=== PATIENT | female | born 1985 | race Caucasian/White ===

== ENCOUNTER → 2017-08-11 | Outpatient (CLI) | payer OTHER ==
[2017-08-11 11:09] LABS: Basophils % (A) 1 %; Eosinophils # (A) 0.2 k/uL (0-0.7); Eosinophils % (A) 2 %; HCT 47.7 % (34.0-46.0); HGB 15.2 gm/dL (11.4-16.0); Lymphocytes # (A) 2.3 k/uL (1.0-4.8); Lymphocytes % (A) 30 %; MCH 27.5 pg (25.0-35.0); MCHC 31.8 g/dL (31.0-37.0); MCV 86.5 fL (80.0-100.0); Mean Platelet Volume 6.3; Monocytes # (A) 0.3 k/uL (0-1.0); Monocytes % (A) 4 %; Neutrophils # (A) 4.6 k/uL (1.3-7.7); Neutrophils % (A) 60 %; Platelet Count 385 k/uL (150-450); RBC 5.52 m/uL (3.80-5.40); RDW 13.1 % (11.5-15.5); WBC 7.6 k/uL (3.8-10.6)
[2017-08-11 11:20] LABS: ALT 24 U/L (9-52); AST 19 U/L (14-36); Albumin 4.2 g/dL (3.5-5.0); Alkaline Phosphatase 69 U/L (38-126); Anion Gap 9 mmol/L; Blood Urea Nitrogen 13 mg/dL (7-17); Calcium 9.6 mg/dL (8.4-10.2); Carbon Dioxide 26 mmol/L (22-30); Chloride 110 mmol/L (98-107); Glucose 120 mg/dL (74-99); Potassium 4.7 mmol/L (3.5-5.1); Sodium 145 mmol/L (137-145); Total Bilirubin 0.3 mg/dL (0.2-1.3); Total Protein 7.3 g/dL (6.3-8.2)
[2017-08-11 19:24] LABS: Hemoglobin A1C 5.9 % (4.0-6.0)
== END | disposition home or self-care (01) ==
LOC: LABWHC1 10:16
PROVIDERS: ATTEND Psychiatry & Neurology Psychiatry
DX: Z51.81 Encounter for therapeutic drug level monitoring (principal); Z79.899 Other long term (current) drug therapy
CPT/HCPCS: 36415; 80053; 83036; 84443; 85025

== ENCOUNTER 2020-04-08 13:53 | Inpatient (IN) | payer MEDICARE, OTHER ==
--- NOTE | 2020-04-08 14:09 | ED ---
Psych HPI - General Source: police Mode of arrival: wheelchair <Gio Sheridan - Last Filed: 04/08/20 19:05> <Zo Rivera - Last Filed: 04/10/20 15:30> - General Chief Complaint: Psychiatric Symptoms Stated Complaint: Mental Health Time Seen by Provider: 04/08/20 14:08 - History of Present Illness Initial Comments: Patient is a 34-year-old female presenting to emergency Department with chief complaint for psychiatric evaluation. Patient has history of psychiatric disorders and currently taking multiple psychiatric medications. Caregiver is also present who states the patient has been rambling on continuously about unrelated subjects. Patient states she is concerned that her "children have been murdered" by killer in [place]. Caregiver states the patient does not have any children and she has been supersized with serial murderers. She denies any suicidal, homicidal thoughts or ideations. (Gio Sheridan) - Related Data Home Medications Medication Instructions Recorded Confirmed Escitalopram [Lexapro] 20 mg PO HS 02/25/16 04/08/20 busPIRone HCL [Buspar] 30 mg PO BID 02/25/16 04/08/20 Medroxyprogesterone Acetate 150 mg INJ Q84D 04/08/20 04/08/20 [Depo-Provera] OLANZapine [ZyPREXA] 5 mg PO HS 04/08/20 04/08/20 Allergies Allergy/AdvReac Type Severity Reaction Status Date / Time Penicillins AdvReac Rash/Hives Verified 04/08/20 14:48 Review of Systems ROS Other: All systems not noted in ROS Statement are negative. <Gio Sheridan - Last Filed: 04/08/20 19:05> ROS Other: All systems not noted in ROS Statement are negative. <Zo Rivera - Last Filed: 04/10/20 15:30> ROS Statement: Those systems with pertinent positive or pertinent negative responses have been documented in the HPI. Past Medical History Additional Past Medical History / Comment(s): AUSTISM History of Any Multi-Drug Resistant Organisms: None Reported Past Surgical History: Ear Surgery Past Psychological History: Anxiety, Depression Smoking Status: Unknown if ever smoked Past Alcohol Use History: Occasional Past Drug Use History: None Reported <Gio Sheridan - Last Filed: 04/08/20 19:05> General Exam Limitations: altered mental status General appearance: alert, in no apparent distress, obese Head exam: Present: atraumatic, normocephalic, normal inspection Eye exam: Present: normal appearance, PERRL, EOMI Pupils: Present: normal accommodation ENT exam: Present: normal exam, normal oropharynx, mucous membranes moist Neck exam: Present: normal inspection, full ROM. Absent: tenderness Respiratory exam: Present: normal lung sounds bilaterally. Absent: respiratory distress, wheezes, rales Cardiovascular Exam: Present: regular rate, normal rhythm, normal heart sounds Extremities exam: Present: normal inspection, full ROM, normal capillary refill. Absent: tenderness Back exam: Present: normal inspection, full ROM. Absent: tenderness, CVA tenderness (R), CVA tenderness (L) Neurological exam: Present: alert, oriented X3, normal gait Psychiatric exam: Present: normal affect Skin exam: Present: warm, dry, intact, normal color <Gio Sheridan - Last Filed: 04/08/20 19:05> Course Vital Signs 04/08/20 04/08/20 14:03 14:43 Temperature 98.4 F 98.2 F Pulse Rate 106 H 113 H Respiratory 18 16 Rate Blood Pressure 171/107 173/109 O2 Sat by Pulse 96 96 Oximetry Medical Decision Making <Gio Sheridan - Last Filed: 04/08/20 19:05> <Zo Rivera - Last Filed: 04/10/20 15:30> - Medical Decision Making Patient is a 34-year-old female presenting to the emergency department for psychiatric evaluation. Physical examination is unremarkable. Patient continues to ramble about unrelated subjects. Caregiver is also present in the room who gave further explaining about the patient.. She denies any homicidal, suicidal thoughts or ideations. EPS evaluated patient and she will be admitted for further medical management. Case discussed with (Gio Sheridan) Evaluated the patient myself. She has pressured speech and confabulations. She thinks she is the mother of the 5 Alves children that were killed in [place] in 2000. I filled out a certification on the patient as she does required inpatient treatment. Patient made aware of plan and [facility]. (Zo Rivera) Disposition Is patient prescribed a controlled substance at d/c from ED?: No Time of Disposition: 19:23 <Gio Sheridan - Last Filed: 04/08/20 19:05> <Zo Rivera - Last Filed: 04/10/20 15:30> Clinical Impression: Acute psychosis Disposition: ADMITTED IP TO THIS HOSP Condition: Fair
[2020-04-08] MEDS ORDERED: LORazepam 1 MG TAB PO PRN (18:14)
[2020-04-08] MEDS ORDERED: ACETAMINOPHEN TAB 325 MG TAB PO PRN (18:14)
[2020-04-08] MEDS ORDERED: MAGNESIUM HYDROXIDE 2,400 MG/10 ML CUP PO PRN (18:14)
[2020-04-08] MEDS: busPIRone HCl 10 MG TAB PO SCH ×2 (19:58→20:17)
[2020-04-08] MEDS: ESCITALOPRAM 20 MG TAB PO SCH (19:59)
[2020-04-08] MEDS ORDERED: OLANZapine 5 MG TAB PO SCH (21:00)
[2020-04-08] MEDS: ZIPRASIDONE 20 MG VIAL IM PRN (22:07)
[2020-04-09] MEDS: LORazepam 2 MG/ML INJ IM PRN ×2 (04:15→22:17)
[2020-04-09] MEDS: busPIRone HCl 10 MG TAB PO SCH ×3 (08:55→20:49)
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
[2020-04-09] MEDS: ESCITALOPRAM 20 MG TAB PO SCH (20:49)
[2020-04-09] MEDS: OLANZapine 7.5 MG TAB PO SCH ×2 (21:41→21:43)
[2020-04-09] MEDS: ZIPRASIDONE 20 MG VIAL IM PRN (22:17)
[2020-04-10] MEDS: busPIRone HCl 10 MG TAB PO SCH ×2 (08:40→21:01)
--- NOTE | 2020-04-10 10:30 | P.PN ---
Progress Note - Text Progress Note Date: 04/10/20 Interval History: Patient was seen wandering the hallways and was directable and agreeable to speak with copy writer in the office. Patient continues to display some disorganized behavior and is a poor historian. She was initially seen at the nursing station yelling expletives at the nurse during med pass She refused to take her Buspar this morning believing that she is being overmedicated despite this dose being actually her home medication. She continues to endorse delusional thinking. She refused her Zyprexa last night and refuses to entertain the idea of a new medication to be trialed. At this time patient denies any suicidal or homicidal ideations, intent or plan. Mental Status Exam: General Appearance: Patient appears to be stated age is alert, directable, and intermittently cooperative. Behavior: Psychomotor activity is elevated. Patient paces back and forth in the room. She was unable to sit still. Speech: Patient's speech is fluent, loud, and has been yelling expletives. Mood/Affect: Mood is improving mildly, affect is congruent and constricted. Suicidality/Homicidality: Patient denies having any suicidal or homicidal ideation intent or plan. Perceptions: Patient denies any visual hallucinations and denies any auditory hallucinations Though content/process: Delusional thought processes as well as disorganization is noted. Memory and concentration: AOX3, grossly intact for the purposes of this session Judgment and insight: Poor Assessment Kos is, unspecified Autism spectrum disorder Intellectual disability Plan: -Patient continues to meet criteria for inpatient psychiatric admission for symptom stabilization and safety. Patient has been signed involuntarily. A second certification was completed and along with petition will be filed for court. -Medications: Patient has been refusing her Zyprexa 7.5 mg by mouth at bedtime for psychosis, BuSpar 30 mg by mouth twice a day for anxiety She has been taking her Lexapro 20 mg by mouth at bedtime for depression -When necessary Ativan and Geodon for agitation/aggression. -SW on board for discharge planning. Encouraged the patient to participate in milieu.
[2020-04-10] MEDS: OLANZapine 7.5 MG TAB PO SCH ×2 (21:01→21:09)
[2020-04-10] MEDS: ESCITALOPRAM 20 MG TAB PO SCH ×2 (21:01→21:09)
--- NOTE | 2020-04-10 22:58 | P.CONS ---
History of Present Illness - Reason for Consult Consult date: 04/10/20 medical eval - Chief Complaint psychosis - History of Present Illness Mindi Velez is a 34 yo F with history autism disorder, intellectual disability who was brought to the ED by police after they receieved reports of pt unable to care for herself. She endorses psychotic delusion of being related to Andrew Alves, being older than her actual age and flight of ideas. She is disorganized in our conversation. She denies any physical complains including chest pain, shortness of breath, nausea, vomiting, abdominal pain. Review of Systems All systems: negative Constitutional: Denies chills, Denies fever Eyes: denies blurred vision, denies pain Ears, nose, mouth and throat: Denies headache, Denies sore throat Cardiovascular: Denies chest pain, Denies shortness of breath Respiratory: Denies cough Gastrointestinal: Denies abdominal pain, Denies diarrhea, Denies nausea, Denies vomiting Genitourinary: Denies dysuria, Denies hematuria Musculoskeletal: Denies myalgias Integumentary: Denies pruritus, Denies rash Neurological: Denies numbness, Denies weakness Psychiatric: Reports confusion, Reports difficulty concentrating, Reports mood swings, Reports paranoia, Denies anxiety, Denies depression Endocrine: Denies fatigue, Denies weight change Past Medical History Additional Past Medical History / Comment(s): AUSTISM History of Any Multi-Drug Resistant Organisms: None Reported Past Surgical History: Ear Surgery Past Psychological History: Anxiety, Depression Smoking Status: Unknown if ever smoked Past Alcohol Use History: Occasional Past Drug Use History: None Reported Medications and Allergies Home Medications Medication Instructions Recorded Confirmed Type Escitalopram [Lexapro] 20 mg PO HS 02/25/16 04/08/20 History busPIRone HCL [Buspar] 30 mg PO BID 02/25/16 04/08/20 History Medroxyprogesterone Acetate 150 mg INJ Q84D 04/08/20 04/08/20 History [Depo-Provera] OLANZapine [ZyPREXA] 5 mg PO HS 04/08/20 04/08/20 History Allergies Allergy/AdvReac Type Severity Reaction Status Date / Time Penicillins AdvReac Rash/Hives Verified 04/08/20 14:48 Physical Exam General: well nourished, well developed, NAD. Vitals reviewed Eyes: PERRL, EOMI, conjunctiva normal HENT: normocephalic, mucus membranes moist Neck: supple, no JVD Lungs: normal respiratory effort, no wheezes or rales CV: Regular rate and rhythm, no murmur. Peripheral pulses 2+ Abdomen: soft, nondistended, no organomegaly Lymph: no cervical or axillary LAD Skin: warm and dry. Neuro: Alert and oriented. No focal deficits. Affect is flat. Delusional Assessment and Plan (1) Acute psychosis Current Visit: Yes Status: Acute Code(s): F23 - BRIEF PSYCHOTIC DISORDER SNOMED Code(s): 79840965 Plan: 1. Acute psychosis. Management per psychiatry. Will continue to follow
[2020-04-11 07:41] LABS: Basophils # (A) 0.1 k/uL (0-0.2); Basophils % (A) 1 %; Eosinophils # (A) 0.2 k/uL (0-0.7); Eosinophils % (A) 2 %; HGB 14.9 gm/dL (11.4-16.0); Lymphocytes # (A) 2.4 k/uL (1.0-4.8); Lymphocytes % (A) 27 %; MCH 28.4 pg (25.0-35.0); MCHC 32.5 g/dL (31.0-37.0); MCV 87.3 fL (80.0-100.0); Mean Platelet Volume 6.6; Monocytes # (A) 0.6 k/uL (0-1.0); Monocytes % (A) 7 %; Neutrophils # (A) 5.4 k/uL (1.3-7.7); Neutrophils % (A) 61 %; Platelet Count 389 k/uL (150-450); RBC 5.26 m/uL (3.80-5.40); WBC 8.9 k/uL (3.8-10.6)
[2020-04-11 08:05] LABS: ALT 30 U/L (4-34); African American GFR (CKD) >90 (>60 ml/min/1.73 sqM); Albumin 4.4 g/dL (3.5-5.0); Anion Gap 8 mmol/L; Blood Urea Nitrogen 15 mg/dL (7-17); Calcium 9.4 mg/dL (8.4-10.2); Carbon Dioxide 26 mmol/L (22-30); Chloride 104 mmol/L (98-107); Cholesterol 151 mg/dL (<200); Glucose 104 mg/dL (74-99); HDL Cholesterol 36 mg/dL (40-60); LDL Cholesterol,Calculated 97 mg/dL (0-99); Non-African American GFR(CKD) >90 (>60 ml/min/1.73 sqM); Sodium 138 mmol/L (137-145); Total Bilirubin 0.9 mg/dL (0.2-1.3); Total Protein 7.7 g/dL (6.3-8.2); Triglycerides 88 mg/dL (<150)
[2020-04-11 08:06] LABS: AST 43 U/L (14-36); Alkaline Phosphatase 63 U/L (38-126); Potassium 4.8 mmol/L (3.5-5.1)
[2020-04-11] MEDS: busPIRone HCl 10 MG TAB PO SCH ×3 (09:07→22:21)
--- NOTE | 2020-04-11 09:13 | P.PN ---
Progress Note - Text Progress Note Date: 04/11/20 Interval History: Patient was seen in her bedroom and was directable and agreeable to speak with sign writer hand in the office. Patient continues to report delusional thought content. He continues to deny any medications stating that she feels like she is going to be overmedicated. She continues to express that she is a mother and is fixated on murders going on in [place]. At this time patient denies any suicidal or homical ideations, intent or plan. She is not endorsing any auditory or visual hallucinations today. She continues to refuse medications even after discussing what was offered was the same as her home medications. Mental Status Exam: General Appearance: Patient appears to be stated age is alert, directable, and intermittently cooperative. Behavior: Patient is calmly seated without any agitated behavior. Speech: Patient's speech is fluent and nonpressured. She continues to occasionally say multiple expletives. Mood/Affect: Mood is irritated, affect is blunted. Suicidality/Homicidality: Patient denies having any suicidal or homicidal ideation intent or plan. Perceptions: Patient denies any visual hallucinations and denies any auditory hallucinations Though content/process: Delusional thought content is evident. Memory and concentration: AOX3, grossly intact for the purposes of this session Judgment and insight: Improving mildly Assessment Psychosis, unspecified - Suspect Schizophrenia Autism spectrum disorder Intellectual disability Plan: -Patient continues to meet criteria for inpatient psychiatric admission for symptom stabilization and safety. Patient has been signed involuntarily. A second certification was completed and along with petition will be filed for court. -Medications: Patient has been refusing her Zyprexa 7.5 mg by mouth at bedtime for psychosis, BuSpar 30 mg by mouth twice a day for anxiety, and her lexapro 20 mg at bedtime. -When necessary Ativan and Geodon for agitation/aggression. -SW on board for discharge planning. Encouraged the patient to participate in milieu.
[2020-04-11 11:36] LABS: Hemoglobin A1C 6.5 % (4.0-6.0)
[2020-04-11] MEDS: OLANZapine 7.5 MG TAB PO SCH (22:21)
[2020-04-11] MEDS: ESCITALOPRAM 20 MG TAB PO SCH (22:21)
[2020-04-12] MEDS: LORazepam 2 MG/ML INJ IM PRN (01:09)
[2020-04-12] MEDS: ZIPRASIDONE 20 MG VIAL IM PRN (01:09)
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
[2020-04-12] MEDS: busPIRone HCl 10 MG TAB PO SCH ×2 (10:07→20:34)
[2020-04-12] MEDS: ESCITALOPRAM 20 MG TAB PO SCH (20:34)
[2020-04-12] MEDS: OLANZapine 7.5 MG TAB PO SCH (20:34)
--- NOTE | 2020-04-13 08:31 | P.PN ---
Progress Note - Text Progress Note Date: 04/13/20 Interval history: Patient was seen in her bedroom with no one else present and was directable and agreeable to speak with administrative underwriter. Patient has taken her Zyprexa last night and is not endorsing any significant side effects. She continues to be somewhat disorganized and impulsive. She is fixated on her medication regimen and states that she will not take Tylenol but would rather prefer ibuprofen. She continues to be somewhat intrusive and impulsive around other peers. At this time patient denies any suicidal or homicidal ideations intent or plan. Denies any Auditory or visual hallucinations. Patient denies any side effects from the medications and has been compliant with meds. Mental status exam: General Appearance: Patient appears to be stated age is alert, directable, and cooperative. Behavior: No agitated behavior. Patient is calm and directable Speech: Patient's speech is fluent and nonpressured. She continues to say multiple expletives. Mood/Affect: Mood is improving mildly, affect is congruent and constricted. Suicidality/Homicidality: Patient denies having any suicidal or homicidal ideation intent or plan. Perceptions: Patient denies any auditory or visual hallucinations. Though content/process: There is no evidence of any delusional thought content and thought process is linear and goal-directed. Memory and concentration: AOX3, grossly intact for the purposes of this session Judgment and insight: improving mildly Assessment/Plan: Continue with current diagnosis. Patient continues to meet criteria for inpatient psychiatric admission for symptom stabilization and safety. We will increase Zyprexa to 10 mg by mouth at bedtime for psychosis. We will change acetaminophen to ibuprofen as per patient preference. Continue other medications in her current regimen. Monitor for medication compliance and for any psychotropic medication side effects. Will continue to monitor ongoing response to treatment. Encouraged participation in milieu.
[2020-04-13] MEDS: busPIRone HCl 10 MG TAB PO SCH ×2 (09:21→21:19)
[2020-04-13] MEDS ORDERED: OLANZapine 10 MG TAB PO SCH (21:00)
[2020-04-13] MEDS: ESCITALOPRAM 20 MG TAB PO SCH (21:19)
[2020-04-14] MEDS: ZIPRASIDONE 20 MG VIAL IM PRN ×2 (01:04→12:34)
[2020-04-14] MEDS: LORazepam 2 MG/ML INJ IM PRN ×2 (01:05→12:33)
[2020-04-14] MEDS ORDERED: hydrOXYzine HCL 50 MG/ML 1 ML VIAL IM PRN (09:05)
--- NOTE | 2020-04-14 10:11 | P.PN ---
Progress Note - Text Progress Note Date: 04/14/20 Interval history: Patient was seen wandering the hallways and was directable and agreeable to speak with writer producer. Patient was found being in a verbal argument with another peer. She was redirectable and talk to this provider in the office. She appears to be less forthcoming with her delusions but when explored she continues to endorse concerns over a "Dee Wurlinger" who is involved in the murders of children. At this time patient denies any suicidal or homicidal idea tions intent or plan. Denies any Auditory or visual hallucinations. Patient denies any side effects from the medications and has been compliant with meds. Mental status exam: General Appearance: Patient appears to be stated age is alert, directable, and cooperative. Behavior: She does appear to be agitated on the unit and is often confrontational with peers. Speech: Patient's speech is fluent and nonpressured. She continues to say multiple expletives. Mood/Affect: Mood is improving mildly, affect is congruent and constricted. Suicidality/Homicidality: Patient denies having any suicidal or homicidal ideation intent or plan. Perceptions: Patient denies any auditory or visual hallucinations. Though content/process: Delusional thought content is evident. Memory and concentration: AOX3, grossly intact for the purposes of this session Judgment and insight: improving mildly Assessment/Plan: Continue with current diagnosis. Patient continues to meet criteria for inpatient psychiatric admission for symptom stabilization and safety. We will increase her Zyprexa to 15 mg at bedtime. We will continue her other current psychotropic medication regimen. Monitor for medication comp liance and for any psychotropic medication side effects. Will continue to monitor ongoing response to treatment. Encouraged participation in milieu.
[2020-04-14] MEDS: busPIRone HCl 10 MG TAB PO SCH ×2 (10:50→21:16)
[2020-04-14] MEDS ORDERED: WATER FOR INJECTION, STERILE 10 ML IV ONE (12:31)
[2020-04-14] MEDS ORDERED: ZIPRASIDONE 20 MG VIAL IM ONE (12:31)
[2020-04-14] MEDS: OLANZapine 5 MG TAB PO SCH (21:17)
[2020-04-14] MEDS: ESCITALOPRAM 20 MG TAB PO SCH (21:17)
[2020-04-15] MEDS: busPIRone HCl 10 MG TAB PO SCH ×2 (09:34→20:11)
--- NOTE | 2020-04-15 11:10 | P.PN ---
Progress Note - Text Progress Note Date: 04/15/20 Interval History: Patient was seen in bed and was directable and agreeable to speak with property underwriter in in her room privately. Patient continues to endorse psychotic symptoms. She reports auditory hallucinations today. She reports that she hears God speaking to her. She states that God tells her to do things like go to the restroom or walk around. She continues to endorse delusional thoughts but appears to be less forthcoming today. She reports that she is a mother and it is difficult for her hearing about murders. At this time patient denies any suicidal or homicidal ideations, intent or plan. He has been intermittently compliant with her medications. She is reporting no side effects at this time. Mental Status Exam: General Appearance: Patient appears to be stated age is alert, directable, and cooperative. Obese body habitus. Behavior: Patient is lying down calmly in her bed without any agitated behavior. Speech: Patient's speech is fluent and nonpressured. Mood/Affect: Mood is "okay." Affect is labile and expansive. Suicidality/Homicidality: Patient denies having any suicidal or homicidal ideation intent or plan. Perceptions: Patient denies any visual hallucinations and endorses auditory hallucinations. Though content/process: She continues to endorse delusional thought content. Thought process is illogical. Memory and concentration: AOX3, grossly intact for the purposes of this session Judgment and insight: Poor Assessment Schizophrenia Autism spectrum disorder Intellectual disability Plan: -Patient continues to meet criteria for inpatient psychiatric admission for symptom stabilization and safety. Patient has not deferred. She is scheduled for court on 04/24/2020. -Patient has been intermittently compliant with the following medications: Continue Zyprexa 15 mg at bedtime Continue BuSpar 30 mg by mouth twice a day Continue Lexapro 20 mg by mouth at bedtime -When necessary Ativan and Geodon for agitation/aggression. -SW on board for discharge planning. Encouraged the patient to participate in milieu.
[2020-04-15] MEDS: MAG HYDROX/AL HYDROX/SIMETH 30 ML CUP PO PRN ×2 (11:59→20:11)
[2020-04-15] MEDS: IBUPROFEN 600 MG TAB PO PRN (12:46)
[2020-04-15] MEDS: hydrOXYzine pamoate 25 MG CAP PO PRN (12:46)
[2020-04-15] MEDS: ESCITALOPRAM 20 MG TAB PO SCH (20:11)
[2020-04-15] MEDS: OLANZapine 5 MG TAB PO SCH (20:11)
[2020-04-16] MEDS: MAG HYDROX/AL HYDROX/SIMETH 30 ML CUP PO PRN ×3 (01:05→15:48)
[2020-04-16] MEDS: IBUPROFEN 600 MG TAB PO PRN (02:05)
[2020-04-16] MEDS: ZIPRASIDONE 20 MG VIAL IM PRN (02:39)
[2020-04-16] MEDS: LORazepam 2 MG/ML INJ IM PRN (02:39)
--- NOTE | 2020-04-16 09:56 | P.PN ---
Progress Note - Text Progress Note Date: 04/16/20 Interval History: Patient was seen wandering the hallways and was directable and agreeable to speak with newspaper writer in the office. At this time patient denies any suicidal or homical ideations, intent or plan. Patient does continue to endorse psychotic symptoms. She reports she "hears the truth" and that she is a "3D person." She continues to endorse delusional thoughts and a focus on "[place]." She continues to refuse medications. She is often in a verbal altercation with peers and yells many expletives. Mental Status Exam: General Appearance: Patient appears to be stated age is alert, directable, and cooperative. Behavior: Patient is calmly seated without any agitated behavior. Speech: Patient's speech is fluent and nonpressured. Mood/Affect: Mood is irritable, affect is congruent but blunted. Suicidality/Homicidality: Patient denies having any suicidal or homicidal ideation intent or plan. Perceptions: Patient endorses auditory hallucinations. Denies visual. Though content/process: Patient is very delusional and illogical. Memory and concentration: AOX3, grossly intact for the purposes of this session Judgment and insight: Very Poor Assessment Schizophrenia Autism spectrum disorder Intellectual disability Plan: -Patient continues to meet criteria for inpatient psychiatric admission for symptom stabilization and safety. Patient has signed [adult voluntary form and] medication consent and was placed in patient's chart. -Patient has been intermittently compliant with the following medications: Zyprexa 15 mg at bedtime BuSpar 30 mg by mouth twice a day Lexapro 20 mg by mouth at bedtime - Upon court order, will likely transition patient to [facility] to ensure medication compliance and preferable side effect profile vs zyprexa. -When necessary Ativan and Geodon for agitation/aggression. -SW on board for discharge planning. Encouraged the patient to participate in milieu.
--- NOTE | 2020-04-16 10:01 | P.PN ---
Progress Note - Text Progress Note Date: 04/16/20 Interval History: Patient was seen resting in bed and was undirectable and refused to speak with medical technical writer in the office. Patient expresses that she is discharged and refused to cooperate with this provider. She states that Elton Asher came in and told her she is discharged. She said that she does not need court because the supreme court has told her she is free. She continues to be very delusional and refusing medications. Mental Status Exam: General Appearance: Patient appears to be stated age is alert, undirectable, and uncooperative. Behavior: Patient is calmly lying in bed without any agitated behavior. Speech: Patient's speech is fluent and nonpressured. Monotone. Mood/Affect: Mood is upset, affect is congruent and flat. Suicidality/Homicidality: Patient denies having any suicidal or homicidal ideation intent or plan. Perceptions: Endorses both auditory and visual hallucinations Though content/process: Very delusional and illogical. Memory and concentration: AOX3, grossly intact for the purposes of this session Judgment and insight: Very poor Assessment Schizoaffective Disorder, bipolar type Tobacco Use Disorder Plan: -Patient continues to meet criteria for inpatient psychiatric admission for symptom stabilization and safety. Patient is currently awaiting court scheduled for 04/24/2020. -She continues to refuse the following medications: [place] 300 mg by mouth 3 times a day for mood stabilization Risperdal 0.5 mg by mouth twice a day for mood stabilization/psychosis -When necessary Ativan and Geodon for agitation/aggression. -NRT - nicotine patch -SW on board for discharge planning. Encouraged the patient to participate in milieu.
[2020-04-16] MEDS: busPIRone HCl 10 MG TAB PO SCH ×2 (11:31→21:14)
[2020-04-16] MEDS: OLANZapine 5 MG TAB PO SCH (21:14)
[2020-04-16] MEDS: ESCITALOPRAM 20 MG TAB PO SCH (21:15)
[2020-04-17] MEDS: busPIRone HCl 10 MG TAB PO SCH ×2 (09:23→21:19)
--- NOTE | 2020-04-17 09:29 | P.PN ---
Progress Note - Text Progress Note Date: 04/17/20 Interval History: Patient was seen wandering the hallways and was directable and agreeable to speak with singer songwriter in the office. Patient continues to refuse medications believing that she has too much ativan in her system to take any medications despite constant education from this provider. She continues to be delusional and disorganized. At this time patient denies any suicidal or homicidal ideations, intent or plan. She continues to believe that she is a mother and has children who have been murdered. She endorses auditory b ut not visual hallucinations. She is intermittently compliant with medications but has been refusing her antipsychotic at bedtime. Mental Status Exam: General Appearance: Patient appears to be stated age is alert, directable, and cooperative. Behavior: Patient is calmly seated without any agitated behavior. Speech: Patient's speech is fluent and nonpressured. Mood/Affect: Mood is irritable, affect is congruent but blunted. Suicidality/Homicidality: Patient denies having any suicidal or homicidal ideation intent or plan. Perceptions: Patient endorses auditory hallucinations. Denies visual. Though content/process: Patient is very delusional and illogical. Memory and concentration: AOX3, grossly intact for the purposes of this session Judgment and insight: Very Poor Assessment Schizophrenia Autism spectrum disorder Intellectual disability Plan: -Patient continues to meet criteria for inpatient psychiatric admission for symptom stabilization and safety. Patient has signed [adult voluntary form and] medication consent and was placed in patient's chart. -Patient has been intermittently compliant with the following medications: Will change zyprexa to Abilify 10 mg daily. Plan is to transition patient to Abilify maintena. BuSpar 30 mg by mouth twice a day Lexapro 20 mg by mouth at bedtime - Upon court order, will likely transition patient to abilify maintena to ensure medication compliance and preferable side effect profile vs zyprexa. -When necessary Ativan and Geodon for agitation/aggression. -SW on board for discharge planning. Encouraged the patient to participate in milieu.
[2020-04-17] MEDS: ARIPiprazole 10 MG TAB PO SCH (10:35)
[2020-04-17] MEDS: MAG HYDROX/AL HYDROX/SIMETH 30 ML CUP PO PRN (13:03)
[2020-04-17] MEDS: hydrOXYzine pamoate 25 MG CAP PO PRN (15:40)
[2020-04-17] MEDS: ESCITALOPRAM 20 MG TAB PO SCH (21:19)
[2020-04-18] MEDS: busPIRone HCl 10 MG TAB PO SCH ×2 (09:13→20:59)
[2020-04-18] MEDS: ARIPiprazole 10 MG TAB PO SCH (09:13)
[2020-04-18] MEDS: MAG HYDROX/AL HYDROX/SIMETH 30 ML CUP PO PRN (10:11)
--- NOTE | 2020-04-18 11:00 | P.PN ---
Progress Note - Text Progress Note Date: 04/18/20 Interval History: Patient was seen wandering the hallways and was directable and agreeable to speak with tech writer in the office. Patient continues to refuse any medications. She continues to be quite delusional thinking that she is older than she really is and that she is involved in multiple murders. At this time patient denies any suicidal or homical ideations, intent or plan. She reports that she will vehemently refuse any Abilify as that medication made her feel like a zombie. Mental Status Exam: General Appearance: Patient appears to be stated age is alert, directable, and uncooperative. Behavior: Psychomotor activity is elevated Speech: Patient's speech is fluent and nonpressured. Mood/Affect: Mood is irritable, affect is intense but constricted. Suicidality/Homicidality: Patient denies having any suicidal or homicidal ideation intent or plan. Perceptions: Patient denies any visual hallucinations. She does endorse auditory hallucinations. Though content/process: Very delusional and illogical. Memory and concentration: AOX3, grossly intact for the purposes of this session Judgment and insight: Very poor Assessment Schizophrenia Autism spectrum disorder Intellectual disability Plan: -Patient continues to meet criteria for inpatient psychiatric admission for symptom stabilization and safety. Patient is waiting for court order. -Medications: Patient is refusing Abilify. BuSpar 30 mg by mouth twice a day Lexapro 20 mg by mouth at bedtime -When necessary Ativan and Geodon for agitation/aggression. -SW on board for discharge planning. Encouraged the patient to participate in milieu.
[2020-04-18] MEDS: ESCITALOPRAM 20 MG TAB PO SCH (20:59)
[2020-04-19] MEDS: MAG HYDROX/AL HYDROX/SIMETH 30 ML CUP PO PRN (05:33)
[2020-04-19] MEDS: busPIRone HCl 10 MG TAB PO SCH ×2 (08:40→20:34)
[2020-04-19] MEDS: ARIPiprazole 10 MG TAB PO SCH (08:40)
--- NOTE | 2020-04-19 09:45 | P.PN ---
Progress Note - Text Progress Note Date: 04/19/20 Interval History: Patient was seen in group and was directable and agreeable to speak with promotion writer in the office. Patient is not endorsing any auditory or visual hallucinations today. She continues to be quite delusional stating that she is a mother in her 50s and has multiple children.. At this time patient denies any suicidal or homical ideations, intent or plan. In regards to medications, the patient continues to refuse any of them. She continues to be confrontational around others at times. Mental Status Exam: General Appearance: Patient appears to be stated age is alert, directable, and intermittently cooperative. Behavior: Patient is calmly seated without any agitated behavior. Speech: Patient's speech is fluent and nonpressured. Mood/Affect: Mood is improving mildly, affect is congruent and blunted. Suicidality/Homicidality: Patient denies having any suicidal or homicidal ideation intent or plan. Perceptions: Patient denies any visual hallucinations and denies any auditory hallucinations Though content/process: Delusional thought content is evident. Patient is illogical. Memory and concentration: AOX3, grossly intact for the purposes of this session Judgment and insight: Very poor Assessment Schizophrenia Autism spectrum disorder Intellectual disability Plan: -Patient continues to meet criteria for inpatient psychiatric admission for symptom stabilization and safety. Patient is waiting for court order. -Medications: Patient is refusing Abilify and other medications: BuSpar 30 mg by mouth twice a day Lexapro 20 mg by mouth at bedtime -When necessary Ativan and Geodon for agitation/aggression. -SW on board for discharge planning. Encouraged the patient to participate in milieu.
[2020-04-19] MEDS: ESCITALOPRAM 20 MG TAB PO SCH (20:34)
[2020-04-19] MEDS: hydrOXYzine pamoate 25 MG CAP PO PRN (23:48)
[2020-04-20] MEDS: ARIPiprazole 10 MG TAB PO SCH (09:13)
[2020-04-20] MEDS: busPIRone HCl 10 MG TAB PO SCH ×2 (09:13→21:03)
[2020-04-20] MEDS: MAG HYDROX/AL HYDROX/SIMETH 30 ML CUP PO PRN (17:09)
--- NOTE | 2020-04-20 19:20 | PN ---
PROGRESS NOTE DATE OF SERVICE: 04/20/2020 CHIEF COMPLAINT: The patient was psychotic and delusional. She was making bizarre and disordered statements. She had auditory hallucinations. She has a diagnosis of schizophrenia. INTERVAL HISTORY: Patient continues to do about the same. She continues with her usual ups and downs. She is refusing most medications. She comes out in the day area. She wanders about. She will make various comments. At times she can have pressured speech. Most of which she says is disorganized and delusional. She makes a range of odd and disconnected statements. She attended groups and tends to be quite intense in how she presents herself. She needs a fair amount of support from staff to manage the groups. She slept fairly well last night. Today she has been up. She continues this the same. She wanders the unit. She will make various random comments to others around her. She will make efforts to engage with staff. She continues with odd and disorganized thoughts. She continues to refuse medications. She tends to show a buoyant mood and she is often smiling when she is making comments. MENTAL STATUS EXAM: Patient was quite restless. She talked throughout most of the interview. She continued with the pressured speech, flight of ideas, disorganized thoughts and making bizarre statements. Her affect was intense. She smiled. Her mood was elevated. She did not appear to be significantly distressed. She continues to be quite delusional. She voiced no thoughts of harm. She was oriented to her immediate environment. ASSESSMENT: I will continue the current diagnosis and treatment plan. We will continue to make efforts to engage the patient in individual and group therapeutic activities. Psychotropic medications will continue the same, though for the most part the patient refuses all psychotropics. We continue to wait on a court order. I strongly encouraged the patient to make an effort towards taking medications. We will focus on stabilization and discharge planning. MMODL / IJN: [id number] /
[2020-04-20] MEDS: ESCITALOPRAM 20 MG TAB PO SCH (21:03)
[2020-04-20] MEDS: hydrOXYzine pamoate 25 MG CAP PO PRN (21:04)
[2020-04-21] MEDS: IBUPROFEN 600 MG TAB PO PRN (02:29)
[2020-04-21] MEDS: busPIRone HCl 10 MG TAB PO SCH ×2 (09:19→22:13)
[2020-04-21] MEDS: ARIPiprazole 10 MG TAB PO SCH (09:19)
--- NOTE | 2020-04-21 13:45 | PN ---
PROGRESS NOTE DATE OF SERVICE: 04/21/2020 CHIEF COMPLAINT: The patient was psychotic and delusional. She was making bizarre disordered statements. She had auditory hallucinations. She has a diagnosis of schizophrenia. INTERVAL HISTORY: Patient has been doing fair. She had a quiet day yesterday. Mostly she wanders the unit. She will at times engage in conversations with others. She will tend to make unusual statements such as that she is a 57-year-old woman. She will go on with quite a bit of detail about this. She attends groups. She is noted to be "inappropriate, intrusive, delusional and disorganized." She slept well last night. Today she has been up. She is doing the same. She attended group this morning. She has been cooperative with staff and, in general, appropriate in her interactions. Staff note that today she seems a little more reality based and less bizarre in her thinking. Whether or not that represents any significant change remains to be seen. She continues to decline taking medications. She seems to understand the situation of her legal status. MENTAL STATUS: Patient was quite restless. She made various random comments, for the most part that were disconnected from the subject at hand. Her affect was in a reasonable range. She smiled. She had an elevated mood. She did not appear to be distressed. She continues to show signs of delusional thinking. There was no indication of thoughts of harm. She was aware of circumstances and surroundings. ASSESSMENT: I will continue the current diagnosis and treatment plan. We will continue to make efforts to engage the patient in individual and group therapeutic activities. The patient continues to decline taking medications and will be set up for a hearing to address her court-ordered treatment issues. We will focus on stabilization and discharge planning. MMODL / IJN: [id number] /
[2020-04-21] MEDS: ESCITALOPRAM 20 MG TAB PO SCH (22:13)
[2020-04-21] MEDS: hydrOXYzine pamoate 25 MG CAP PO PRN (22:31)
[2020-04-22] MEDS: busPIRone HCl 10 MG TAB PO SCH ×2 (09:02→21:54)
[2020-04-22] MEDS: ARIPiprazole 10 MG TAB PO SCH (09:02)
[2020-04-22] MEDS: MAG HYDROX/AL HYDROX/SIMETH 30 ML CUP PO PRN (09:03)
--- NOTE | 2020-04-22 10:01 | P.PN ---
Progress Note - Text Progress Note Date: 04/22/20 Interval History: Patient was seen wandering the hallways and was directable and agreeable to speak with law writer in the office. Patient continues to be very delusional. She reports that she has "officers on standby"to help if there is any issue on the unit. She reports multiple different names that she is paranoid towards but it is not endorsing any suicidal or homicidal ideation, intention, and/or plan. She is currently not reporting any auditory or visual hallucinations. She continues to refuse medications. Mental Status Exam: General Appearance: Patient appears to be stated age is alert, directable, and intermittently cooperative. Behavior: Patient is calmly seated without any agitated behavior. She has been noted to be intrusive with other staff and peers. Often engaging in physical touch. Speech: Patient's speech is fluent and nonpressured. Patient occasionally states expletives. Mood/Affect: Mood is improving mildly, affect is congruent and blunted. Suicidality/Homicidality: Patient denies having any suicidal or homicidal ideation intent or plan. Perceptions: Patient denies any visual hallucinations and denies any auditory hallucinations Though content/process: Delusional thought content is evident. Patient is illogical. Memory and concentration: AOX3, grossly intact for the purposes of this session Judgment and insight: Very poor Assessment Schizophrenia Autism spectrum disorder Intellectual disability Plan: -Patient continues to meet criteria for inpatient psychiatric admission for symptom stabilization and safety. Patient has signed adult voluntary form and medication consent and was placed in patient's chart. -Medications: Patient is intermittently adherent with her following medications: BuSpar 30 mg by mouth twice a day Lexapro 20 mg by mouth at bedtime He continues to refuse prescribed Abilify. -When necessary Ativan and Geodon for agitation/aggression. -SW on board for discharge planning. Encouraged the patient to participate in milieu.
[2020-04-22] MEDS: ESCITALOPRAM 20 MG TAB PO SCH (21:54)
[2020-04-22] MEDS: IBUPROFEN 600 MG TAB PO PRN (23:12)
[2020-04-23] MEDS: busPIRone HCl 10 MG TAB PO SCH ×2 (09:12→21:09)
[2020-04-23] MEDS: ARIPiprazole 10 MG TAB PO SCH (09:12)
[2020-04-23] MEDS: MAG HYDROX/AL HYDROX/SIMETH 30 ML CUP PO PRN (09:51)
--- NOTE | 2020-04-23 10:06 | P.PN ---
Progress Note - Text Progress Note Date: 04/23/20 Interval History: Patient was seen lying down on the floor in the hallway on her belly and was directable and agreeable to speak with health underwriter in the office. Patient continues to endorse delusional thoughts. Patient reports that she is 57 years old and refuses to listen to reason that she appears much younger. She expresses significant paranoia towards the court's and others. She states that "they are all trying to bullsh you." She reports that the staff here and this provider should not trust the municipal court judge. She continues to refuse medications. In particular, she is refusing any antipsychotic medications. She is not endorsing any suicidal or homicidal ideation, intention, and/or plan. She is not reporting any auditory or visual hallucinations at this time. Mental Status Exam: General Appearance: Patient appears to be stated age is alert, directable, and intermittently cooperative. Behavior: Patient is calmly seated without any agitated behavior. She has been noted to be intrusive with other staff and peers. Often engaging in physical touch. Speech: Patient's speech appears to be pressured and circumstantial today. Mood/Affect: Mood is irritable, affect is congruent and expansive today. Suicidality/Homicidality: Patient denies having any suicidal or homicidal ideation intent or plan. Perceptions: Patient denies any visual hallucinations and denies any auditory hallucinations Though content/process: Delusional thought content is evident. Patient is illogical. Memory and concentration: AOX3, grossly intact for the purposes of this session Judgment and insight: Very poor Assessment Schizophrenia Autism spectrum disorder Intellectual disability Plan: -Patient continues to meet criteria for inpatient psychiatric admission for symptom stabilization and safety. Patient has signed adult voluntary form and medication consent and was placed in patient's chart. -Medications: BuSpar 30 mg by mouth twice a day Lexapro 20 mg by mouth at bedtime She continues to refuse prescribed Abilify. -When necessary Ativan and Geodon for agitation/aggression. -SW on board for discharge planning. Encouraged the patient to participate in milieu.
[2020-04-23] MEDS: hydrOXYzine pamoate 25 MG CAP PO PRN (14:51)
[2020-04-23] MEDS: ZIPRASIDONE 20 MG VIAL IM PRN (18:40)
[2020-04-23] MEDS: LORazepam 2 MG/ML INJ IM PRN (18:43)
[2020-04-23] MEDS: ESCITALOPRAM 20 MG TAB PO SCH (21:09)
[2020-04-24] MEDS: MAG HYDROX/AL HYDROX/SIMETH 30 ML CUP PO PRN ×2 (04:32→14:47)
[2020-04-24] MEDS: ARIPiprazole 10 MG TAB PO SCH (09:33)
[2020-04-24] MEDS: busPIRone HCl 10 MG TAB PO SCH ×2 (09:33→20:23)
--- NOTE | 2020-04-24 10:57 | P.PN ---
Progress Note - Text Progress Note Date: 04/24/20 Interval History: Patient was seen wandering the hallways and was directable and agreeable to speak with quality analyst/technical writer in the office. Patient continues to report multiple delusions. She continues to state that she was born in the 1960s. She expresses a low mood today as she is reminiscing on the loss of multiple family members some of which are present during the [place] assassination. At this time patient denies any suicidal or homicidal ideations, intent or plan. She srinath nues to refuse any medications. She states that she will not take any Abilify. She would prefer to take just Zyprexa. Despite psychoeducation given to the patient, the patient refuses to take any medications. She is due to present herself to court today. Mental Status Exam: General Appearance: Patient appears to be stated age is alert, directable, and intermittently cooperative. Behavior: Patient is calmly seated without any agitated behavior. She has been noted to be intrusive with other staff and peers. Often engaging in physical touch. Speech: Patient's speech appears to be pressured and circumstantial today. Patient continues to say multiple expletives. Mood/Affect: Mood is irritable, affect is congruent and expansive today. Suicidality/Homicidality: Patient denies having any suicidal or homicidal ideation intent or plan. Perceptions: Patient denies any visual hallucinations and denies any auditory hallucinations Though content/process: Delusional thought content is evident. Patient is illogical. Memory and concentration: AOX3, grossly intact for the purposes of this session Judgment and insight: Very poor Assessment Schizophrenia Autism spectrum disorder Intellectual disability Plan: -Patient continues to meet criteria for inpatient psychiatric admission for symptom stabilization and safety. Patient is now court ordered for medications on 04/24/2020. -Medications: BuSpar 30 mg by mouth twice a day Lexapro 20 mg by mouth at bedtime Abilify 10 mg by mouth daily. If patient refuses Abilify, she will receive IM Zyprexa 5 mg. -When necessary Ativan and Geodon for agitation/aggression. -SW on board for discharge planning. Encouraged the patient to participate in milieu.
[2020-04-24] MEDS ORDERED: OLANZapine 10 MG VIAL IM PRN (12:14)
[2020-04-24] MEDS: ESCITALOPRAM 20 MG TAB PO SCH (20:23)
[2020-04-25] MEDS: MAG HYDROX/AL HYDROX/SIMETH 30 ML CUP PO PRN ×2 (04:55→14:57)
--- NOTE | 2020-04-25 09:32 | P.PN ---
Progress Note - Text Progress Note Date: 04/25/20 Interval History: Patient was seen wandering the hallways and was directable and agreeable to speak with staff writer in the office. Patient requested that a mental health tech be present in the room during the interview. Patient expresses that this physician does not have a PhD and as such is not qualified to understand the use of psychotropic medications. She continues to be very delusional and at times grandiose. She is vehemently denying any medication changes to her regimen, even though when she was started on her home medications, the patient continued to refuse any medications. At this time patient denies any suicidal or homicidal ideations, intent or plan. She continues to be very delusional. Mental Status Exam: General Appearance: Patient appears to be stated age is alert, directable, and intermittently cooperative. Behavior: Psychomotor activity is elevated. Patient is agitated. Speech: Patient's speech appears to be pressured, circumstantial, and loud. Mood/Affect: Mood is angry, affect is congruent and expansive today. Suicidality/Homicidality: Patient denies having any suicidal or homicidal ideation intent or plan. Perceptions: Patient denies any visual hallucinations and denies any auditory hallucinations Though content/process: Delusional thought content is evident. Patient is illogical. Memory and concentration: AOX3, grossly intact for the purposes of this session Judgment and insight: Very poor Assessment Schizophrenia Autism spectrum disorder Intellectual disability Plan: -Patient continues to meet criteria for inpatient psychiatric admission for symptom stabilization and safety. Patient is now court ordered for medications on 04/24/2020. -Despite the patient's concerns for Abilify to be overly sedating, she was informed that Zyprexa is known to be more sedating and that Zyprexa has a stronger predisposition for weight gain. Patient is still not agreeable to trying Abilify but we will continue to encourage the use of this medication. -Medications: BuSpar 30 mg by mouth twice a day Lexapro 20 mg by mouth at bedtime Switch Abilify 10 mg by mouth to bedtime as per patient preference. If patient refuses Abilify, she will receive IM Zyprexa 5 mg. -When necessary Ativan and Geodon for agitation/aggression. -SW on board for discharge planning. Encouraged the patient to participate in milieu.
[2020-04-25] MEDS: busPIRone HCl 10 MG TAB PO SCH ×2 (12:20→19:30)
[2020-04-25] MEDS: ARIPiprazole 10 MG TAB PO SCH ×2 (12:20→19:30)
[2020-04-25] MEDS: ESCITALOPRAM 20 MG TAB PO SCH (19:30)
[2020-04-26] MEDS: busPIRone HCl 10 MG TAB PO SCH ×3 (09:36→22:09)
[2020-04-26] MEDS ORDERED: OLANZapine 10 MG VIAL IM PRN (10:17)
--- NOTE | 2020-04-26 10:24 | P.PN ---
Progress Note - Text Progress Note Date: 04/26/20 Interval History: Patient was seen [wandering the hallways] and was directable and agreeable to speak with marketing underwriter in the office. Patient continues to be quite delusional. She initially requested a sales team recruiter be present but then relented and allowed a mental health tech be present in the room during the interview. She continues to endorse significant delusions and states that she'll be uncooperative with the medications. She is reporting that she will not take any injectable medications. She was reminded that she is currently on a court order and that if she refuses any oral medications she will receive injectable medication. This provider tried to compromise with the patient offered her different options of antipsychotic treatment such as Prolixin, Haldol, Risperdal, or Invega instead of Abilify, but the patient states that she will not take any of these. She continues to have bizarre delusions of murder, her age, her children and other illogical ideas. She continues to be verbally aggressive around staff and peers. Mental Status Exam: General Appearance: Patient appears to be stated age is alert, directable, and intermittently cooperative. Behavior: Psychomotor activity is elevated. Patient is agitated. Speech: Patient's speech appears to be pressured, circumstantial, and loud. Mood/Affect: Mood is angry, affect is congruent and expansive today. Suicidality/Homicidality: Patient denies having any suicidal or homicidal ideation intent or plan. Perceptions: Patient denies any visual hallucinations and denies any auditory hallucinations Though content/process: Delusional thought content is evident. Patient is illogical. Memory and concentration: AOX3, grossly intact for the purposes of this session Judgment and insight: Very poor Assessment Schizophrenia Autism spectrum disorder Intellectual disability Plan: -Patient continues to meet criteria for inpatient psychiatric admission for symptom stabilization and safety. Patient is now court ordered for medications on 04/24/2020. -Medications: BuSpar 30 mg by mouth twice a day Lexapro 20 mg by mouth at bedtime Continue Abilify 10 mg by mouth to bedtime. If patient refuses Abilify, she will receive IM Zyprexa 5 mg. We will gradually titrate zyprexa IM doses over the weekend if patient continues to refuse oral abilify. -When necessary Ativan and Geodon for agitation/aggression. -SW on board for discharge planning. Encouraged the patient to participate in milieu.
[2020-04-26] MEDS: ARIPiprazole 10 MG TAB PO SCH (21:15)
[2020-04-26] MEDS: ESCITALOPRAM 20 MG TAB PO SCH (21:15)
[2020-04-27] MEDS: busPIRone HCl 10 MG TAB PO SCH ×2 (08:54→21:55)
--- NOTE | 2020-04-27 09:10 | P.PN ---
Progress Note - Text Progress Note Date: 04/27/20 Interval history: Patient was seen wandering the hallways and was directable and agreeable to s peak with inspector automatic typewriter. Patient continues to appear to be talkative and speaking with many other patients on the unit. She was agreeable to speak to inspector automatic typewriter in the office. She was difficult to redirect during conversation and was tangential/circumstantial. She claims that "the grain elevator superintendent made a mistake and he is going to pay for this". She also continues to perseverate on her medications and claims that she wants to be placed back on Zyprexa. She continued to speak about her "manic symptoms" and states that "those are all gone. Patient is hyperverbal and illogical at times. She states that she has a fair appetite. At this time patient denies any suicidal or homicidal ideations intent or plan. Denies any Auditory or visual hallucinations. Mental status exam: General Appearance: Patient appears to be overweight, short in stature, stated age is alert, directable, and attempts to be cooperative. Behavior: No agitated behavior. Patient is calm and directable twos up at times. Speech: Patient's speech is fluent and nonpressured. Hyperverbal. Mood/Affect: Mood is improving mildly, affect is congruent and constricted. Suicidality/Homicidality: Patient denies having any suicidal or homicidal ideation intent or plan. Perceptions: Patient denies any auditory or visual hallucinations. Though content/process: Patient rambles, is illogical/tangential. Memory and concentration: AOX3, grossly intact for the purposes of this session Judgment and insight: Poor Assessment/Plan: Continue with current diagnosis. Patient continues to meet criteria for inpatient psychiatric admission for symptom stabilization and safety.Patient will be maintained on current psychotropic medication regimen. Monitor for medication compliance and for any psychotropic medication side effects. Will continue to monitor ongoing response to treatment. Encouraged participation in milieu.
[2020-04-27] MEDS: ARIPiprazole 10 MG TAB PO SCH (21:55)
[2020-04-27] MEDS: ESCITALOPRAM 20 MG TAB PO SCH (21:55)
[2020-04-28] MEDS: MAG HYDROX/AL HYDROX/SIMETH 30 ML CUP PO PRN (04:54)
[2020-04-28] MEDS: busPIRone HCl 10 MG TAB PO SCH ×2 (09:30→21:38)
--- NOTE | 2020-04-28 09:32 | P.PN ---
Progress Note - Text Progress Note Date: 04/28/20 Interval history: Patient was seen wandering the hallways and near the nurses desk as she was s peaking other patients and was directable and agreeable to speak with advertising copy writer. Patient continues to appear to be talkative. She also continues to be tangential and circumstantial and illogical at times. She spoke about the ginning operator giving her a court order and also how she is demanding to be off the unit. When advertising copy writer was attempting to explain her medications patient repeatedly yelled at him saying "I don't care I don't care!". She continues to have poor insight and judgment and continues to ramble. She also continues to perseverate on her medications and claims that she wants to be placed back on Zyprexa. She referred to several other patients on the unit having different conditions. She states that she was able to sleep throughout the night. She states that she has a fair appetite. At this time patient denies any suicidal or homicidal ideations intent or plan. Denies any Auditory or visual hallucinations. Mental status exam: General Appearance: Patient appears to be overweight, short in stature, stated age is alert, directable, and attempts to be cooperative. Behavior: No agitated behavior. Patient is calm and directable at times. Irritable. Speech: Patient's speech is fluent and nonpressured. Hyperverbal. Mood/Affect: Mood is improving mildly, affect is congruent and constricted. Suicidality/Homicidality: Patient denies having any suicidal or homicidal ideation intent or plan. Perceptions: Patient denies any auditory or visual hallucinations. Though content/process: Patient rambles, is illogical/tangential. Memory and concentration: AOX3, grossly intact for the purposes of this session Judgment and insight: Poor Assessment/Plan: Continue with current diagnosis. Patient continues to meet criteria for inpatient psychiatric admission for symptom stabilization and safety.Patient will be maintained on current psychotropic medication regimen. Monitor for medication compliance and for any psychotropic medication side effects. Will continue to monitor ongoing response to treatment. Encouraged participation in milieu.
[2020-04-28] MEDS ORDERED: ZIPRASIDONE 20 MG VIAL IM ONE (11:18)
[2020-04-28] MEDS: ZIPRASIDONE 20 MG VIAL IM PRN (11:19)
[2020-04-28] MEDS ORDERED: WATER FOR INJECTION, STERILE 10 ML IV ONE (11:19)
[2020-04-28] MEDS: ARIPiprazole 10 MG TAB PO SCH (21:38)
[2020-04-28] MEDS: ESCITALOPRAM 20 MG TAB PO SCH (21:38)
[2020-04-29] MEDS: MAG HYDROX/AL HYDROX/SIMETH 30 ML CUP PO PRN ×3 (03:53→16:57)
--- NOTE | 2020-04-29 09:22 | P.PN ---
Progress Note - Text Progress Note Date: 04/29/20 Interval History: Patient was seen wandering the hallways and was directable and agreeable to speak with communications writer in the office if accompanied by another staff member. Patient continues to be delusional. She continues to believe that her age is older than his stated. She continues to question the validity of her treatment and displays very poor insight into her need for medications. She has been adherent with her Abilify last night but is unable to verbalize any significant side effects at this time. She is not endorsing any suicidal or homicidal ideation, intention, and/or plan. She denies any overt auditory or visual hallucinations. She continues to report that she has been in contact with her test engineer nuclear equipment who is currently working on a case in [place]. Mental Status Exam: General Appearance: Patient appears to be stated age is alert, difficult to direct and uncooperative. Behavior: Psychomotor activity is elevated. Patient is agitated. Speech: Patient's speech appears to be pressured, circumstantial, and loud. Mood/Affect: Mood is angry, affect is congruent and expansive today. Suicidality/Homicidality: Patient denies having any suicidal or homicidal ideation intent or plan. Perceptions: Patient denies any visual hallucinations and denies any auditory hallucinations Though content/process: Delusional thought content is evident. Patient is illogical. Memory and concentration: AOX3, grossly intact for the purposes of this session Judgment and insight: Very poor Assessment Schizophrenia Autism spectrum disorder Intellectual disability Plan: -Patient continues to meet criteria for inpatient psychiatric admission for symptom stabilization and safety. Patient is now court ordered for medications on 04/24/2020. -Medications: BuSpar 30 mg by mouth twice a day Lexapro 20 mg by mouth at bedtime We will increase Abilify to 15 mg by mouth at bedtime for mood stabilization/psychosis. As patient is under court order, she refuses Abilify she will receive IM Zyprexa 10 mg when necessary. -When necessary Geodon for agitation/aggression. -SW on board for discharge planning. Encouraged the patient to participate in milieu.
[2020-04-29] MEDS: busPIRone HCl 10 MG TAB PO SCH ×2 (09:32→21:22)
--- NOTE | 2020-04-29 09:37 | P.PN ---
Progress Note - Text Progress Note Date: 04/29/20 Interval History: Patient was seen resting in bed and refused to get out of bed to speak with technical writer and editor in the office. She preferred to stay in her room as there was no one else present. Patient continues to endorse significant psychotic symptoms. She reports that she has been talking to and seeing her Shaw. She reports that she also has 7 children but not with Shaw. She expresses that she does not want any medications as she is concerned about weight gain and high blood pressure. She was informed of the treatment team will be monitoring closely her blood pressure. She did not endorse any suicidal ideation, intention, and/or plan. She stated that she started feeling homicidal towards this provider as she wants to be discharged and not taking any medications. Mental Status Exam: General Appearance: Patient appears to be stated age is alert, directable, and uncooperative. Behavior: Psychomotor activity is normal Eye contact is intense. Patient is resting in bed. Speech: Patient's speech is fluent and nonpressured. Mood/Affect: Mood is " angry", affect is blunted. Suicidality/Homicidality: Patient denies having any suicidal ideation. She reports homicidal ideation towards this provider. Perceptions: Auditory and visual hallucinations are endorsed. Though content/process: Delusions are evident. Memory and concentration: AOX3, grossly intact for the purposes of this session Judgment and insight: Very poor Assessment Schizoaffective Disorder, bipolar type Tobacco Use Disorder Plan: -Patient continues to meet criteria for inpatient psychiatric admission for symptom stabilization and safety. Patient has received a court order on 04/24/2020. -Medications: We will increase Invega to 3 mg by mouth every morning and 60 g by mouth daily at bedtime for mood stabilization/psychosis. If the patient refuses Invega, she will receive 10 mg IM of Zyprexa. -When necessary Vistaril and Geodon for agitation/aggression. -NRT - nicotine patch -SW on board for discharge planning. Encouraged the patient to participate in milieu.
[2020-04-29] MEDS: hydrOXYzine pamoate 25 MG CAP PO PRN (17:36)
[2020-04-29] MEDS ORDERED: ARIPiprazole 15 MG TAB PO SCH (21:00)
[2020-04-29] MEDS: ESCITALOPRAM 20 MG TAB PO SCH (21:21)
[2020-04-29] MEDS ORDERED: WATER FOR INJECTION, STERILE 10 ML IV ONE (21:26)
[2020-04-29] MEDS: OLANZapine 10 MG VIAL IM PRN (21:27)
[2020-04-30] MEDS: busPIRone HCl 10 MG TAB PO SCH ×2 (09:23→22:17)
--- NOTE | 2020-04-30 10:30 | P.PN ---
Progress Note - Text Progress Note Date: 04/30/20 Interval History: Patient was seen wandering the hallways and was directable and agreeable to speak with inspector automatic typewriter in the office. Patient expresses strong disdain for medications. She reports that she is very un-trusting of Dr. Clements has she has witnessed him prescribe medications that cause patient to be more psychotic. She is currently continuing to refuse any oral Abilify and has been receiving IM Zyprexa. Again she was presented with the options for other antipsychotic medications, the patient is currently refusing. She is not reporting any suicidal or homicidal ideation or intention. She continues to be very delusional and paranoid. She can easily intrusive with staff and peers. She denies any overt auditory or visual hallucinations. Mental Status Exam: General Appearance: Patient appears to be stated age is alert, difficult to direct and uncooperative. Behavior: Psychomotor activity is elevated. Patient is agitated. Speech: Patient's speech appears to be pressured, circumstantial, and loud. Mood/Affect: Mood is angry, affect is congruent and expansive today. Suicidality/Homicidality: Patient denies having any suicidal or homicidal ideation intent or plan. Perceptions: Patient denies any visual hallucinations and denies any auditory hallucinations Though content/process: Delusional thought content is evident. Patient is illogical. Flight of ideas. Memory and concentration: AOX3, grossly intact for the purposes of this session Judgment and insight: Very poor Assessment Schizophrenia Autism spectrum disorder Intellectual disability Plan: -Patient continues to meet criteria for inpatient psychiatric admission for symptom stabilization and safety. Patient is now court ordered for medications on 04/24/2020. -Medications: BuSpar 30 mg by mouth twice a day Lexapro 20 mg by mouth at bedtime Increase Abilify to 20 mg by mouth at bedtime for mood stabilization/psychosis. As patient is under court order, she refuses Abilify she will receive IM Zyprexa 10 mg when necessary. Will consider changing medication regimen to haldol with plans to transition patient to haldol decanoate. Will consider discontinuing or holding lexapro as it may contribute to patient's overactivation/jessie. -When necessary Geodon for agitation/aggression. -SW on board for discharge planning. Encouraged the patient to participate in milieu.
[2020-04-30] MEDS: MAG HYDROX/AL HYDROX/SIMETH 30 ML CUP PO PRN (11:08)
[2020-04-30] MEDS: ARIPiprazole 10 MG TAB PO SCH (22:17)
[2020-04-30] MEDS: ESCITALOPRAM 20 MG TAB PO SCH (22:17)
[2020-04-30] MEDS: hydrOXYzine pamoate 25 MG CAP PO PRN (22:22)
[2020-04-30] MEDS: OLANZapine 10 MG VIAL IM PRN (22:29)
[2020-05-01] MEDS: IBUPROFEN 600 MG TAB PO PRN ×2 (06:02→23:08)
[2020-05-01] MEDS: MAG HYDROX/AL HYDROX/SIMETH 30 ML CUP PO PRN ×2 (06:02→22:04)
[2020-05-01] MEDS: busPIRone HCl 10 MG TAB PO SCH ×3 (09:53→21:44)
--- NOTE | 2020-05-01 10:17 | P.PN ---
Progress Note - Text Progress Note Date: 05/01/20 Patient was seen wandering the hallways and was directable and agreeable to speak with racebook writer in the office. Patient continues to be quite agitated. She is raising her voice and is swearing at this provider. She continues to endorse bizarre and paranoid delusions. She expresses at [facility] and [facility] have been causing patients to be iconic and manic and that if this provider is working with them, then this provider is making a "huge mistake." She continues to endorse some grandiose statements and has been intrusive with peers and staff. She is not endorsing any suicidal or homicidal ideation or intention. She has not been adherent with her medications and has been requiring IM Zyprexa. She is not reporting any significant side effects at this time. Mental Status Exam: General Appearance: Patient appears to be stated age is alert, difficult to direct and uncooperative. Behavior: Psychomotor activity is elevated. Patient is agitated. Speech: Patient's speech appears to be pressured, circumstantial, and loud. Patient says many expletives. Mood/Affect: Mood is angry, affect is congruent and expansive today. Suicidality/Homicidality: Patient denies having any suicidal or homicidal ideation intent or plan. Perceptions: Patient denies any visual hallucinations and denies any auditory hallucinations Though content/process: Delusional thought content is evident. Patient is illogical. Flight of ideas. Grandiose. Memory and concentration: AOX3, grossly intact for the purposes of this session Judgment and insight: Very poor Assessment Schizophrenia Rule out Schizoaffective Disorder, Bipolar Type Autism spectrum disorder Intellectual disability Plan: -Patient continues to meet criteria for inpatient psychiatric admission for symptom stabilization and safety. Patient is now court ordered for medications on 04/24/2020. -Medications: Continue BuSpar 30 mg by mouth twice a day Discontinue Lexapro 20 mg by mouth at bedtime as the patient may be over activated on her antidepressant Increase Abilify to 10 mg by mouth in the morning and 20 mg by mouth at bedtime for mood stabilization/psychosis. As patient is under court order, she refuses Abilify she will receive IM Zyprexa 10 mg when necessary. Will consider changing medication regimen to haldol with plans to transition patient to haldol decanoate. -When necessary Geodon for agitation/aggression. -SW on board for discharge planning. Encouraged the patient to participate in [facility].
[2020-05-01] MEDS: ARIPiprazole 10 MG TAB PO SCH (21:34)
[2020-05-02] MEDS ORDERED: ARIPiprazole 10 MG TAB PO SCH (09:00)
[2020-05-02] MEDS: busPIRone HCl 10 MG TAB PO SCH ×2 (09:57→21:14)
[2020-05-02] MEDS: OLANZapine 10 MG VIAL IM PRN (10:11)
[2020-05-02] MEDS ORDERED: flUPHENAZine 2.5 MG/ML (MDV) 10 ML VIAL IM PRN (10:14)
--- NOTE | 2020-05-02 10:20 | P.PN ---
Progress Note - Text Progress Note Date: 05/02/20 Interval History: Patient was seen in the [facility] and refused to speak with the technical writer in the office. Patient was agreeable to speak with technical writer with [facility] present. Patient continues to be agitated, intrusive, and verbally aggressive with this provider. She continues to vehemently deny any medication changes. Despite being offered oral formulations of multiple antipsychotic medications, the patient refuses any change to her regimen. This is despite the fact that the patient has also refused her home regimen when she was admitted. She continues to be very delusional and is continually focused on Evonne Alves and the murders in [place]. She expresses blame towards Dr. Clements in [facility] for messing with the medications that lead to Evonne Alves performing the murders. She denies any suicidal or homicidal ideation, intention, and/or plan. Mental Status Exam: General Appearance: Patient appears to be stated age is alert, difficult to direct and uncooperative. Obese body habitus. Behavior: Psychomotor activity is elevated. Patient is agitated. Speech: Patient's speech appears to be pressured, circumstantial, and loud. Patient says many expletives. Mood/Affect: Mood is angry, affect is congruent and expansive today. Suicidality/Homicidality: Patient denies having any suicidal or homicidal ideation intent or plan. Perceptions: Patient denies any visual hallucinations and denies any auditory hallucinations Though content/process: Delusional thought content is evident. Patient is illogical. Flight of ideas. Grandiose. Memory and concentration: AOX3, grossly intact for the purposes of this session Judgment and insight: Very poor Assessment Schizoaffective disorder, bipolar type Autism spectrum disorder Intellectual disability Plan: -Patient continues to meet criteria for inpatient psychiatric admission for symptom stabilization and safety. Patient is now court ordered for medications on 04/24/2020. -Medications: Continue BuSpar 30 mg by mouth twice a day Discontinue Abilify and Zyprexa. We will change her medication regimen to Prolixin 2.5 mg by mouth twice a day. If patient refuses oral prolixin, we will administer 1.25 mg IM. These doses will gradually be titrated to an efficacious dose. Our goals transition the patient to Prolixin decanoate as a patient has been nonadherent with treatment. -When necessary Geodon for agitation/aggression. -SW on board for discharge planning. Encouraged the patient to participate in milieu.
[2020-05-02] MEDS: ARIPiprazole 10 MG TAB PO SCH (11:30)
[2020-05-02] MEDS ORDERED: hydrOXYzine HCL 50 MG/ML 1 ML VIAL IM ONE (11:58)
[2020-05-02] MEDS: ZIPRASIDONE 20 MG VIAL IM PRN (17:02)
[2020-05-02] MEDS: IBUPROFEN 600 MG TAB PO PRN (23:30)
[2020-05-03] MEDS: busPIRone HCl 10 MG TAB PO SCH ×2 (08:40→21:17)
[2020-05-03] MEDS: IBUPROFEN 600 MG TAB PO PRN ×3 (08:43→21:17)
[2020-05-03] MEDS ORDERED: flUPHENAZine 2.5 MG/ML (MDV) 10 ML VIAL IM PRN (10:10)
--- NOTE | 2020-05-03 10:19 | P.PN ---
Progress Note - Text Progress Note Date: 05/03/20 Interval History: Patient was seen in the hallway and refused to speak with the business writer in the office. Patient was agreeable to be interviewed while walking around the halls with no one. The patient continues to be agitated, intrusive, and verbally aggressive with this provider. She continues to state that she does not trust this provider. She has been adherent with her oral Prolixin. She continues to be paranoid and lacks insight. She continues to be intrusive and grandiose. She is not endorsing any suicidal or homicidal ideation, intention, and/or plan. She continues to be delusional. She does not endorse any auditory or visual hallucinations. Mental Status Exam: General Appearance: Patient appears to be stated age is alert, difficult to direct and uncooperative. Obese body habitus. Behavior: Psychomotor activity is elevated. Patient wanders the halls. Eye contact is intense. Speech: Patient's speech appears to be pressured, circumstantial, and loud. Patient says many expletives. Mood/Affect: Mood is angry, affect is congruent and expansive today. Suicidality/Homicidality: Patient denies having any suicidal or homicidal ideation intent or plan. Perceptions: Patient denies any visual hallucinations and denies any auditory hallucinations Though content/process: Delusional thought content is evident. Patient is illogical. Flight of ideas. Grandiose. Memory and concentration: AOX3, grossly intact for the purposes of this session Judgment and insight: Very poor Assessment Schizoaffective disorder, bipolar type Autism spectrum disorder Intellectual disability Plan: -Patient continues to meet criteria for inpatient psychiatric admission for symptom stabilization and safety. Patient is now court ordered for medications on 04/24/2020. -Medications: Continue BuSpar 30 mg by mouth twice a day Discontinue Abilify and Zyprexa. We will increase Prolixin to 3 mg by mouth twice a day for psychosis/mood stabilization. This will gradually be titrated to 4 mg by mouth twice a day. If patient refuses oral prolixin, we will administer 3 mg IM. Our goals transition the patient to Prolixin decanoate as the patient has been nonadherent with treatment. -When necessary Vistaril and Geodon for agitation/aggression. -SW on board for discharge planning. Encouraged the patient to participate in milieu.
[2020-05-03] MEDS: MAG HYDROX/AL HYDROX/SIMETH 30 ML CUP PO PRN (11:14)
[2020-05-04] MEDS: hydrOXYzine pamoate 25 MG CAP PO PRN ×3 (00:06→16:45)
[2020-05-04] MEDS: IBUPROFEN 600 MG TAB PO PRN ×2 (05:02→14:19)
[2020-05-04] MEDS: MAG HYDROX/AL HYDROX/SIMETH 30 ML CUP PO PRN ×2 (05:03→10:40)
[2020-05-04] MEDS: busPIRone HCl 10 MG TAB PO SCH ×2 (08:11→20:37)
[2020-05-05] MEDS: MAG HYDROX/AL HYDROX/SIMETH 30 ML CUP PO PRN ×2 (03:34→12:31)
[2020-05-05] MEDS: busPIRone HCl 10 MG TAB PO SCH ×2 (09:03→20:31)
--- NOTE | 2020-05-05 11:53 | P.PN ---
Subjective Progress Note Date: 05/04/20 Principal diagnosis: Bipolar I manic SUBJECTIVE: "I am actually 56 years old and am the sister of the lady who drowned her children in [email or web address] and you should not give Zyprexa in the morning it will make you ill, I want 5.2 at night, I like you already you are algerian, I know that sounds racist but doctors don't listen to women, etc. etc OBJECTIVE: She is on excellent medications, she was seen in my office and can be found at the staffing desk talking loudly most of the time, and is still very manic, with pressured speech flight of ideas, grandiosity, delusions, irrational demands. Staff report:She only slept 3 hours last night She denies delusions or hallucinations or suicidal ideas or desire to hurt others 05/02/20 17:19 - Nurse Note by Zoe Calle Acct Num: [id number] : 1985 Patient Age: 35 Patient still at the front counter clerk will not be redirected. "fuck you [place]", "im getting out of here". Yelling and screaming at staff. Swearing, hitting the desk. Vistaril IM given VITAL SIGNS: temp98.2,pulse80,resp16,BP159/81 LABS: nothing new ASSESSMENT: Patient is still very psychotic and manic PLAN: no change suggested Objective - Vital Signs Vital signs: Vital Signs Temp 97.6 F 05/04/20 00:23 Pulse 84 05/04/20 00:23 Resp 16 05/04/20 00:23 BP 147/79 05/04/20 00:23 Pulse Ox 98 05/03/20 05:21 Intake & Output 05/03/20 05/04/20 05/04/20 18:59 06:59 18:59 Weight 82.1 kg - Labs CBC & Chem 7: 04/11/20 06:46 04/11/20 06:46
--- NOTE | 2020-05-05 11:57 | P.PN ---
Subjective Progress Note Date: 05/05/20 Principal diagnosis: Bipolar I manic SUBJECTIVE: OBJECTIVE: Vital signs: temp resp heart rate blood pressure Labs: STAFF REPORT: MENTAL STATUS: Appearance: basic ADL'S adequate Gait and station:pacing Speech:somewhat loud and fast and rambling with a touch of paranoia, "my real psychiatrist is dr Elliott, someone else was wearing his name tag I don't want to see that other psychiatrist, I won't take any shots." Eye contact: good Behavior: cooperative but pressured and wants to ask "just one more thing dr Yates" Affect:labile No evidence or acknowlegment of voices or delusions Orientation: good to person place and time MEDICATIONS:[id number] BID plus prn's ASSESSMENT:patient is cooperative and still too pressured PLAN:no change she will have to work out her concerns with dr Gilbert and will probably need a decanoate for compliance reasons. Objective - Vital Signs Vital signs: Vital Signs Temp 97.9 F 05/05/20 03:38 Pulse 107 H 05/05/20 03:38 Resp 18 05/05/20 03:38 BP 137/74 05/05/20 03:38 Pulse Ox 98 05/03/20 05:21 Intake & Output 05/04/20 05/05/20 05/05/20 19:59 06:59 18:59 Weight 80.8 kg - Labs CBC & Chem 7: 04/11/20 06:46 04/11/20 06:46
[2020-05-05] MEDS: IBUPROFEN 600 MG TAB PO PRN (15:44)
[2020-05-06] MEDS: MAG HYDROX/AL HYDROX/SIMETH 30 ML CUP PO PRN (06:23)
[2020-05-06] MEDS: IBUPROFEN 600 MG TAB PO PRN ×2 (07:01→17:09)
[2020-05-06] MEDS: busPIRone HCl 10 MG TAB PO SCH ×2 (08:33→21:18)
[2020-05-06] MEDS ORDERED: flUPHENAZine 2.5 MG/ML (MDV) 10 ML VIAL IM PRN (09:23)
--- NOTE | 2020-05-06 09:23 | P.PN ---
Progress Note - Text Progress Note Date: 05/06/20 Interval History: Patient was seen in the hallway and refused to speak with the administrative underwriter in the office. Patient was agreeable to be interviewed while walking around the halls with no one else around. The patient continues to be agitated, intrusive, and verbally aggressive with this provider. Patient continues to endorse significant paranoia especially towards Dr. Clements. She reports that he is responsible for the medications that caused Evonne Alves to be psychotic and d rown her children. She continues to be very delusional stating that she is in her 50s and is with children. She is adamant about returning to her previous medication regimen. She is not reporting any suicidal or homicidal ideation, intention, and/or plan. She reports no side effects of her current medications and has been adherent with her prolixin. Mental Status Exam: General Appearance: Patient appears to be stated age is alert, difficult to direct and uncooperative. Obese body habitus. Behavior: Psychomotor activity is elevated. Patient wanders the halls. Eye contact is intense. Speech: Patient's speech appears to be pressured, circumstantial, and loud. Mood/Affect: Mood is irritable, affect is congruent, angry and expansive today. Suicidality/Homicidality: Patient denies having any suicidal or homicidal ideation intent or plan. Perceptions: Patient denies any visual hallucinations and denies any auditory hallucinations Though content/process: Delusional thought content is evident. Patient is illogical. Flight of ideas. Memory and concentration: AOX3, grossly intact for the purposes of this session Judgment and insight: Very poor Assessment Schizoaffective disorder, bipolar type Autism spectrum disorder Intellectual disability Plan: -Patient continues to meet criteria for inpatient psychiatric admission for symptom stabilization and safety. Patient is now court ordered for medications on 04/24/2020. -Medications: Continue BuSpar 30 mg by mouth twice a day Increase Prolixin to 5 mg by mouth twice a day. Her plans to transition the patient to Prolixin decanoate due to patient history of nonadherence with prescribed treatment. -When necessary Vistaril and Geodon for agitation/aggression. -SW on board for discharge planning. Encouraged the patient to participate in milieu.
[2020-05-07] MEDS: MAG HYDROX/AL HYDROX/SIMETH 30 ML CUP PO PRN ×3 (05:51→19:38)
[2020-05-07] MEDS: busPIRone HCl 10 MG TAB PO SCH ×2 (08:38→22:16)
[2020-05-07] MEDS ORDERED: flUPHENAZine 2.5 MG/ML (MDV) 10 ML VIAL IM PRN (08:56)
--- NOTE | 2020-05-07 09:02 | P.PN ---
Progress Note - Text Progress Note Date: 05/07/20 Interval History: Patient was seen in the hallway and was agreeable to speak with television writer in the office. Patient reports that this provider is not her psychiatrist as her psychiatrist is now Dr Elliott. Despite trying to redirect the patient she is confusing Dr Elliott with another provider. She expresses a strong desire to be back on her original regimen of zyprexa and lexapro. She was informed this regimen showed no efficacy in treating her psychosis and manic symptoms but she continues to be adamant that those are the medications she requires. She has been adherent with her prolixin and denies any side effects at this time. She reports no suicidal or homicidal ideation or intention. She reports no auditory or visual hallucinations. She continues to be very delusional and paranoid especially regarding Dr Cowan and Evonne Alves. Mental Status Exam: General Appearance: Patient appears to be stated age is alert, difficult to direct and intermittently cooperative. Obese body habitus. Behavior: Psychomotor activity is elevated. Patient wanders the halls. Eye con tact is intense. Speech: Patient's speech appears to be pressured, circumstantial, and loud. Mood/Affect: Mood is irritable, affect is congruent and expansive today. Suicidality/Homicidality: Patient denies having any suicidal or homicidal ideation intent or plan. Perceptions: Patient denies any visual hallucinations and denies any auditory hallucinations Though content/process: Delusional thought content is evident. Patient is illogical. Flight of ideas. Memory and concentration: AOX3, grossly intact for the purposes of this session Judgment and insight: Very poor Assessment Schizoaffective disorder, bipolar type Autism spectrum disorder Intellectual disability Plan: -Patient continues to meet criteria for inpatient psychiatric admission for symptom stabilization and safety. Patient is now court ordered for medications on 04/24/2020. -Medications: Start [place] 300 mg by mouth twice a day for mood stabilization. Encouraged patient for medication adherence. Continue BuSpar 30 mg by mouth twice a day Increase Prolixin to 7.5 mg by mouth twice a day. If patient refuses, she will received Prolixin 5 mg IM. Our plan is to transition the patient to Prolixin decanoate due to patient history of nonadherence with prescribed treatment. -When necessary Ken[place] and Gabedon for agitation/aggression. -SW on board for discharge planning. Encouraged the patient to participate in milieu.
[2020-05-07] MEDS: LITHIUM CARBONATE 300 MG CAP PO SCH ×2 (11:59→22:15)
[2020-05-07] MEDS: hydrOXYzine pamoate 25 MG CAP PO PRN (12:16)
[2020-05-07 12:50] LABS: Basophils # (A) 0.1 k/uL (0-0.2); Basophils % (A) 2 %; Eosinophils # (A) 0.2 k/uL (0-0.7); Eosinophils % (A) 2 %; HCT 51.1 % (34.0-46.0); HGB 16.2 gm/dL (11.4-16.0); Lymphocytes # (A) 2.2 k/uL (1.0-4.8); Lymphocytes % (A) 29 %; MCH 27.9 pg (25.0-35.0); MCHC 31.7 g/dL (31.0-37.0); MCV 87.9 fL (80.0-100.0); Mean Platelet Volume 6.3; Monocytes # (A) 0.4 k/uL (0-1.0); Monocytes % (A) 5 %; Neutrophils # (A) 4.4 k/uL (1.3-7.7); Neutrophils % (A) 59 %; Platelet Count 401 k/uL (150-450); RBC 5.82 m/uL (3.80-5.40); RDW 13.1 % (11.5-15.5); WBC 7.4 k/uL (3.8-10.6)
[2020-05-07] MEDS: LORATADINE 10 MG TAB PO SCH (12:50)
[2020-05-07] MEDS: IBUPROFEN 600 MG TAB PO PRN (18:16)
[2020-05-08] MEDS: LORATADINE 10 MG TAB PO SCH (07:21)
[2020-05-08] MEDS: LITHIUM CARBONATE 300 MG CAP PO SCH (07:44)
[2020-05-08] MEDS: busPIRone HCl 10 MG TAB PO SCH ×2 (07:44→20:35)
[2020-05-08] MEDS: MAG HYDROX/AL HYDROX/SIMETH 30 ML CUP PO PRN ×2 (09:40→15:10)
[2020-05-08] MEDS ORDERED: flUPHENAZine 2.5 MG/ML (MDV) 10 ML VIAL IM PRN (10:04)
--- NOTE | 2020-05-08 10:05 | P.PN ---
Progress Note - Text Progress Note Date: 05/08/20 Interval History: Patient was seen in the hallway and was agreeable to speak with remote mortgage underwriter in the office. Patient was accompanied by the MHT. Patient reports that Dr Elliott is her psychiatrist. She continues to disagree with the treatment plan proposed by this psychiatrist. She continues to be delusional and intrusive, reporting that she is , older than her stated age, and that medications are causing her to be more psychotic. She also reports her continued delusion that Dr. Cowan was involved with Evonne Alves murdering her children. She appears to have lowered the tone of her voice and has been adherent with her medications including lithium. She does not endorse any significant side effects of her medications aside from feeling that they are not as efficacious as her previously prescribed regimen of lexapro, buspar and zyprexa. Mental Status Exam: General Appearance: Patient appears to be stated age is alert, difficult to direct and intermittently cooperative. Obese body habitus. Behavior: Psychomotor activity is elevated. Patient wanders the halls. Eye contact is intense. Speech: Patient's speech appears to be pressured, circumstantial. Less volume than before. Mood/Affect: Mood is irritable, affect is congruent and expansive today. Suicidality/Homicidality: Patient denies having any suicidal or homicidal ideation intent or plan. Perceptions: Patient denies any visual hallucinations and denies any auditory hallucinations Though content/process: Delusional thought content is evident. Patient is illogical. Flight of ideas. Memory and concentration: AOX3, grossly intact for the purposes of this session Judgment and insight: Very poor Assessment Schizoaffective disorder, bipolar type Autism spectrum disorder Intellectual disability Plan: -Patient continues to meet criteria for inpatient psychiatric admission for symptom stabilization and safety. Patient is now court ordered for medications on 04/24/2020. -Medications: Increase [place] to 450 mg by mouth twice a day for mood stabilization. Encouraged patient for medication adherence. Continue BuSpar 30 mg by mouth twice a day Increase Prolixin to 10 mg by mouth twice a day. If patient refuses, she will received Prolixin 7.5 mg IM. Our plan is to transition the patient to Prolixin decanoate due to patient history of nonadherence with prescribed treatment. -When necessary Vistaril and Gabedon for agitation/aggression. -SW on board for discharge planning. Encouraged the patient to participate in milieu.
[2020-05-08] MEDS: IBUPROFEN 600 MG TAB PO PRN (10:28)
[2020-05-08 17:18] LABS: Glucose,Whole Blood 115 mg/dL (75-99)
[2020-05-08] MEDS: LITHIUM CARBONATE 150 MG CAP PO SCH (20:36)
--- NOTE | 2020-05-09 08:59 | P.PN ---
Progress Note - Text Progress Note Date: 05/09/20 Interval History: Patient was seen in the hallway and was agreeable to speak with technical publications writer in the office. Patient continues to be adamant about returning to her previously prescribed medication regimen of zyprexa, buspar and lexapro. She does not overtly endorse any of her delusions today and is not reporting any auditory or visual hallucinations. She does report that she is having significant side effects of her prescribed medications stating she is experiencing sweats, in creased sleep, and increased irritability. She was informed that the recreational therapy staff and this provider have noticed less impulsive behavior and and she has been less forthcoming with her delusional thoughts. She remains adamant that she return to her previous regimen as she claims they are the only medications that work for her. Mental Status Exam: General Appearance: Patient appears to be stated age is alert, directable and cooperative. Obese body habitus. Behavior: Psychomotor activity is elevated. Speech: Patient's speech appears to be interruptible but with less expletives. She continues to yell but is directable to lower her volume. Mood/Affect: Mood is irritable, affect is congruent, angry, demanding and expansive today. Suicidality/Homicidality: Patient denies having any suicidal or homicidal ideation intent or plan. Perceptions: Patient denies any visual hallucinations and denies any auditory hallucinations Though content/process: Does not endorse her delusional thoughts today but is fixated on her previously prescribed medication regimen. Memory and concentration: AOX3, grossly intact for the purposes of this session Judgment and insight: Very poor Assessment Schizoaffective disorder, bipolar type Autism spectrum disorder Intellectual disability Plan: -Patient continues to meet criteria for inpatient psychiatric admission for symptom stabilization and safety. Patient is now court ordered for medications on 04/24/2020. -Medications: Continue [place] to 450 mg by mouth twice a day for mood stabilization. Encouraged patient for medication adherence. Continue BuSpar 30 mg by mouth twice a day Continue Prolixin 10 mg by mouth twice a day. If patient refuses, she will received Prolixin 7.5 mg IM. Our plan is to transition the patient to Prolixin decanoate due to patient history of nonadherence with prescribed treatment. -Will draw lithium level this weekend. May administer prolixin decanoate before this weekend. -When necessary Vistaril and Geodon for agitation/aggression. -SW on board for discharge planning. Encouraged the patient to participate in milieu.
[2020-05-09] MEDS: LITHIUM CARBONATE 150 MG CAP PO SCH ×3 (09:14→20:28)
[2020-05-09] MEDS: busPIRone HCl 10 MG TAB PO SCH ×2 (09:14→20:28)
[2020-05-09] MEDS: LORATADINE 10 MG TAB PO SCH (09:15)
[2020-05-09] MEDS: DOXYCYCLINE 100 MG CAP PO SCH ×2 (11:38→20:28)
[2020-05-09] MEDS: MAG HYDROX/AL HYDROX/SIMETH 30 ML CUP PO PRN ×3 (11:47→21:21)
[2020-05-09] MEDS: IBUPROFEN 600 MG TAB PO PRN (17:27)
--- NOTE | 2020-05-09 19:24 | P.PN ---
Subjective Progress Note Date: 05/09/20 Principal diagnosis: L ear pain She complains of pain and pressure in her L ear over the past two days. She does report a history of various allergies. She denies sore throat, sinus pressure, fever, chills Objective - Vital Signs Vital signs: Vital Signs Temp 98.0 F 05/09/20 14:18 Pulse 94 05/09/20 06:50 Resp 16 05/09/20 06:50 BP 136/88 05/09/20 06:50 Pulse Ox 96 05/07/20 05:31 - Exam HEENT: L TM clear fluid, R TM wnl. Sinus erythema, tenderness and edema on L. No cervical LAD Lungs: normal effort, clear throughout CV: RRR, no murmur - Labs CBC & Chem 7: 05/07/20 12:18 04/11/20 06:46 Assessment and Plan (1) Acute psychosis Current Visit: Yes Status: Acute Code(s): F23 - BRIEF PSYCHOTIC DISORDER SNOMED Code(s): 50664543 (2) Acute bacterial sinusitis Current Visit: Yes Status: Acute Code(s): J01.90 - ACUTE SINUSITIS, UNSPECIFIED; B96.89 - OTH BACTERIAL AGENTS THE CAUSE OF DISEASES [facility]SD [facility] SNOMED Code(s): 16990870 Plan: 1. Acute psychosis. Management per psychiatry. Will continue to follow 2. Acute bacterial sinusitis. Start doxycycline x 7 days as well as claritin
[2020-05-10] MEDS: busPIRone HCl 10 MG TAB PO SCH ×2 (09:23→20:58)
[2020-05-10] MEDS: LORATADINE 10 MG TAB PO SCH (09:24)
[2020-05-10] MEDS: DOXYCYCLINE 100 MG CAP PO SCH ×2 (09:24→20:58)
[2020-05-10] MEDS: LITHIUM CARBONATE 150 MG CAP PO SCH ×2 (09:27→20:59)
[2020-05-10] MEDS ORDERED: flUPHENAZine 2.5 MG/ML (MDV) 10 ML VIAL IM PRN (10:05)
--- NOTE | 2020-05-10 10:05 | P.PN ---
Progress Note - Text Progress Note Date: 05/10/20 Interval History: Patient was seen in the hallway and was agreeable to speak with financial underwriter in the office accompanied by KAILEE Jaeger. Patient continues to be agitated when the topic of her medications is brought up. This provider informed her that he has spoken to her guardian Dee about her medication regimen and this patient yelled stating, "You're lying! Dee would never allow these medications to be changed. You have to put me back on the zyprexa, buspar and lexapro." We have discussed at length that her current medication regimen is for her benefit but the patient continues to display very poor insight and lack of trust for this provider. She continues to be somewhat more directable and less impulsive. She is less forthcoming with her delusions unless she is riled up and angry. She continues to mention that Dr Cowan is responsible for Evonne Alves. Mental Status Exam: General Appearance: Patient appears to be stated age is alert, difficult to direct and uncooperative. Obese body habitus. Behavior: Psychomotor activity is elevated. Patient left the room and was directed to return with help from staff. Speech: Patient's speech appears to be interruptible but with less expletives. She continues to yell. Mood/Affect: Mood is irritable, affect is congruent, angry, demanding and expansive today. Suicidality/Homicidality: Patient denies having any suicidal or homicidal ideation intent or plan. Perceptions: Patient denies any visual hallucinations and denies any auditory hallucinations Though content/process: Does not endorse her delusional thoughts today but is fixated on her previously prescribed medication regimen. Memory and concentration: AOX3, grossly intact for the purposes of this session Judgment and insight: Very poor Assessment Schizoaffective disorder, bipolar type Autism spectrum disorder Intellectual disability Plan: -Patient continues to meet criteria for inpatient psychiatric admission for symptom stabilization and safety. Patient is now court ordered for medications on 04/24/2020. -Medications: Continue [place] to 450 mg by mouth twice a day for mood stabilization. Encouraged patient for medication adherence. [place] level to be drawn today. Continue BuSpar 30 mg by mouth twice a day Continue Prolixin 10 mg by mouth twice a day. If patient refuses, she will received Prolixin 10 mg IM. We will administer Prolixin decanoate 25 mg IM tomorrow. -When necessary Vistaril and Geodon for agitation/aggression. -SW on board for discharge planning. Encouraged the patient to participate in milieu.
[2020-05-10] MEDS: IBUPROFEN 600 MG TAB PO PRN ×2 (10:32→20:58)
[2020-05-10] MEDS: MAG HYDROX/AL HYDROX/SIMETH 30 ML CUP PO PRN (11:02)
[2020-05-11] MEDS: busPIRone HCl 10 MG TAB PO SCH ×2 (08:45→20:04)
[2020-05-11] MEDS: LITHIUM CARBONATE 150 MG CAP PO SCH (08:45)
[2020-05-11] MEDS: DOXYCYCLINE 100 MG CAP PO SCH ×2 (08:45→20:04)
[2020-05-11] MEDS: LORATADINE 10 MG TAB PO SCH (08:45)
[2020-05-11] MEDS ORDERED: fluPHENAZine DECANOATE 25 MG/ML 5ML MDV IM ONE (09:07)
[2020-05-11] MEDS: MAG HYDROX/AL HYDROX/SIMETH 30 ML CUP PO PRN (10:25)
--- NOTE | 2020-05-11 15:32 | PN ---
PROGRESS NOTE DATE OF SERVICE: 05/11/2020 CHIEF COMPLAINT: The patient was psychotic and delusional. She was making bizarre disordered statements. She had auditory hallucinations. She has a diagnosis of schizophrenia. INTERVAL HISTORY: The patient continues to struggle. She has ups and downs in her mood as well as thought process. She was out on the unit yesterday. She attended groups. Sometimes she will show some participation in groups and at other times not. She can be disorganized in her thoughts. She can veer off into talk that is quite disconnected from things going on around her. She does have some periods where she will get agitated. She slept well last night and today she has been up. She wanders about. She continues to have on and off delusional thinking. She makes a lot of comments about what medications she believes that she needs. She is accepting of being on the Prolixin, at least at this point. She is adamant about the idea that she needs her BuSpar and does not want that taken away. She says that she has had some side effects that she does not like to lithium, but though she was not very clear about details of that. She appears to tolerate her psychotropic medications. MENTAL STATUS: Patient was quite restless. She answered some questions, though frequently she would veer off and make comments about her medications and other issues that were outside of what we were talking about. Her affect at times was intense. She generally had a pleasant manner. Her mood was somewhat changeable from being upset and distressed to smiling and being relaxed. At times she seemed distressed and at other times not. There was no outward evidence of thought disorder when I talked to her. She was oriented to events and surroundings. ASSESSMENT: I will continue the current diagnosis and treatment plan. The patient has received her Prolixin Decanoate 25 mg IM today. I will increase her oral Prolixin to 20 mg twice a day. I will also increase the lithium to 600 mg twice a day. Her lithium level this morning was 0.4. I briefly discussed medication issues with the patient, though given the limitation she has and being able to process and follow the conversation, I kept it limited. We will focus on stabilization and discharge planning. MMODL / IJN: [id number] /
[2020-05-11] MEDS: IBUPROFEN 600 MG TAB PO PRN (15:47)
[2020-05-11] MEDS: LITHIUM CARBONATE 300 MG CAP PO SCH (20:04)
[2020-05-12] MEDS: busPIRone HCl 10 MG TAB PO SCH ×2 (09:10→21:19)
[2020-05-12] MEDS: DOXYCYCLINE 100 MG CAP PO SCH ×2 (09:10→21:19)
[2020-05-12] MEDS: LORATADINE 10 MG TAB PO SCH (09:11)
[2020-05-12] MEDS: LITHIUM CARBONATE 300 MG CAP PO SCH ×2 (09:11→21:20)
[2020-05-12 09:18] VITALS: PULSE 98; RESP 20
[2020-05-12] MEDS: MAG HYDROX/AL HYDROX/SIMETH 30 ML CUP PO PRN ×2 (12:07→22:41)
[2020-05-12 19:09] VITALS: BP 136/86
[2020-05-12] MEDS: IBUPROFEN 600 MG TAB PO PRN (21:20)
--- NOTE | 2020-05-13 01:11 | PN ---
PROGRESS NOTE DATE OF SERVICE: 05/12/2020 CHIEF COMPLAINT: The patient was psychotic and delusional. She was making bizarre disordered statements. She had auditory hallucination. She has a diagnosis of schizophrenia and autistic spectrum disorder. INTERVAL HISTORY: Patient continues about the same. She had usual ups and downs yesterday at times she would be energetic and upbeat at other times she would seem angry and stressed. Some of the time she would make comments about needing to be discharged, though at other times she voiced no concerns in that regard. She attended groups yesterday. At times it was difficult to try to keep her on track with the group activities. She slept well last night. Today she has been up. She comes out in the day area. There is times that she is angry, though it is hard to say what angers her. At other times, her mood is positive. She did not attend groups today so far. She has generally been appropriate in her interactions when I have seen her, though she has had some times where she has been angry at staff for unclear reasons. She did not voice any specific concerns at the various times that we talked during the day. Sometimes she will catch me in the [place] and try to initiate a conversation about one thing or another. She tolerates psychotropic medications. MENTAL STATUS: Patient was restless. She would respond to some questions appropriately and at times she would veer often and make tangential comments. At times her affect was intense. When I talked to her mostly she smiled and had a pleasant manner though I have observed her in the [place] being in a more distressed state. Her mood was even when we talked. She has shown periods where she can be quite distressed though this can change very quickly. She continues with disordered thinking. She voices no thoughts of harm. She is oriented to circumstances and surroundings. ASSESSMENT: I will continue the current diagnosis and treatment plan. I will continue psychotropic medications the same. It is noteworthy that Prolixin oral has been increased to 20 mg twice a day. She has received Prolixin Decanoate 20 mg IM on the . She has not had any problems with the medications. We will focus on stabilization and discharge planning. MMDESTINEEL / IJN: [id number] /
[2020-05-13] MEDS: busPIRone HCl 10 MG TAB PO SCH ×2 (09:56→21:01)
[2020-05-13] MEDS: LITHIUM CARBONATE 300 MG CAP PO SCH ×2 (09:56→21:02)
[2020-05-13] MEDS: LORATADINE 10 MG TAB PO SCH (09:56)
[2020-05-13] MEDS: DOXYCYCLINE 100 MG CAP PO SCH ×2 (09:56→21:00)
--- NOTE | 2020-05-13 10:29 | P.PN ---
Progress Note - Text Progress Note Date: 05/13/20 Interval History: Patient was seen in the hallway and was agreeable to speak with technical document writer in the office. Patient expresses that today she feels okay. She apologizes to this provider over her actions during this hospitalization. She continues to report a distrust of Dr. Clements and prefers not to have him as her psychiatrist due to her delusion that Dr. Clements was involved with the decline of Evonne Alves. She is otherwise less intrusive and has been adherent with her medications. She received Prolixin Decanoate this past Wednesday and is not reporting any significant side effects. She appears to be less agitated and calm and cooperative today. She is not reporting any auditory or visual hallucinations She denies any suicidal or homicidal ideation, intention, and/or plan. Mental Status Exam: General Appearance: Patient appears to be stated age is alert, directable and cooperative. Obese body habitus. Behavior: Psychomotor activity is normal. Patient is seated calmly without any agitation. Speech: Patient's speech appears to be at normal volume, spontaneous, hyperverbal at times but interruptible. Mood/Affect: Mood is okay, affect is congruent, calm, euthymic with appropriate range. Suicidality/Homicidality: Patient denies having any suicidal or homicidal ideation intent or plan. Perceptions: Patient denies any visual hallucinations and denies any auditory hallucinations Though content/process: She continues to endorse delusional thoughts towards Dr. Clements. Fixation on medications but less so today. Memory and concentration: AOX3, grossly intact for the purposes of this session Judgment and insight: Mildly improving Assessment Schizoaffective disorder, bipolar type Autism spectrum disorder Intellectual disability Plan: -Patient continues to meet criteria for inpatient psychiatric admission for symptom stabilization and safety. Patient is now court ordered for medications on 04/24/2020. -Medications: [place] levels noted to be 0.4. She has been dramatically adherent with her lithium. She refused her oral lithium medication Wednesday and this morning. Continue BuSpar 30 mg by mouth twice a day Prolixin Decanoate 25 mg IM was administered on 05/11/2020. Oral Prolixin will be decreased to 10 mg by mouth twice a day. -When necessary Vistaril and Geodon for agitation/aggression. -SW on board for discharge planning. Encouraged the patient to participate in milieu.
[2020-05-13] MEDS: IBUPROFEN 600 MG TAB PO PRN ×2 (10:52→21:02)
[2020-05-13] MEDS: MAG HYDROX/AL HYDROX/SIMETH 30 ML CUP PO PRN ×2 (11:18→17:17)
[2020-05-13 12:50] VITALS: BMI 35.4
[2020-05-14] MEDS: DOXYCYCLINE 100 MG CAP PO SCH (10:36)
[2020-05-14] MEDS: busPIRone HCl 10 MG TAB PO SCH (10:36)
[2020-05-14] MEDS: LORATADINE 10 MG TAB PO SCH (10:36)
[2020-05-14] MEDS: LITHIUM CARBONATE 300 MG CAP PO SCH (10:39)
[2020-05-14] MEDS: MAG HYDROX/AL HYDROX/SIMETH 30 ML CUP PO PRN (11:32)
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
[2020-05-14 14:42] VITALS: TEMP 98
[2020-05-14] MEDS ORDERED: LITHIUM CARBONATE 300 MG CAP PO SCH (21:00)
== END 2020-05-14 14:48 | disposition home or self-care (01) | DRG 885 ==
LOC: EC 13:53 → EEVIPCON 13:53 → 3MHU 17:30
PROVIDERS: ADMIT Psychiatry & Neurology Psychiatry; ATTEND Psychiatry & Neurology Psychiatry
DX: F25.0 Schizoaffective disorder, bipolar type (principal); R45.851 Suicidal ideations; F79 Unspecified intellectual disabilities; Z91.128 Patient's intentional underdosing of medication regimen for other reason; F41.9 Anxiety disorder, unspecified; J01.90 Acute sinusitis, unspecified; F84.0 Autistic disorder; R45.87 Impulsiveness; T43.96XA Underdosing of unspecified psychotropic drug, initial encounter; E66.9 Obesity, unspecified; Z68.35 Body mass index [BMI] 35.0-35.9, adult; Z79.899 Other long term (current) drug therapy; Z88.0 Allergy status to penicillin; Z71.3 Dietary counseling and surveillance
CPT/HCPCS: 80053; 80061; 80178; 82075; 83036; 84443; 85025; 99285

== ENCOUNTER → 2020-10-03 | Outpatient (CLI) | payer MEDICARE ==
[2020-10-03 17:18] LABS: HCT 51.8 % (37.2-46.3); HGB 16.5 g/dL (12.0-15.0); MCH 27.5 pg (27.0-32.0); MCHC 31.9 g/dL (32.0-37.0); MCV 86.5 fL (80.0-97.0); Mean Platelet Volume 8.6 fL (9.5-12.2); Platelet Count 402 X 10*3/uL (140-440); RBC 5.99 X 10*6/uL (4.10-5.20); RDW 12.8 % (11.5-14.5); WBC 7.65 X 10*3/uL (4.50-10.00)
[2020-10-03 17:36] LABS: African American GFR (CKD) 67.8 (60.0-200.0); Albumin 4.7 g/dL (3.80-4.90); Albumin/Globulin Ratio 1.62 (1.60-3.17); Anion Gap 15.9 mmol/L (4.00-12.00); BUN/Creat Ratio 7.5 Ratio (12.00-20.00); Calcium 9.5 mg/dL (8.7-10.3); Carbon Dioxide 19.1 mmol/L (21.6-31.8); Chol/HDL Ratio 4.13; Globulin 2.9 g/dL (1.6-3.3); LDL Cholesterol,Calculated 88.2 mg/dL (0.0-131.0); Lithium 0.5 mmol/L (0.5-1.2); Non-African American GFR(CKD) 58.5 (60.0-200.0); Total Bilirubin 0.5 mg/dL (0.3-1.2); Total Protein 7.6 g/dL (6.2-8.2); VLDL Calculation 30.8 mg/dL (5.00-40.00)
[2020-10-05 08:35] LABS: Myoglobin 43 ng/mL (25-58)
== END | disposition home or self-care (01) ==
LOC: LABWHC1 07:48
PROVIDERS: ATTEND Family Medicine
DX: E66.9 Obesity, unspecified (principal); R73.03 Prediabetes
CPT/HCPCS: 36415; 80053; 80061; 80178; 82085; 82550; 82607; 82746; 83036; 83874; 84443; 85027

== ENCOUNTER → 2020-10-17 | Outpatient (CLI) | payer MEDICARE | END | disposition home or self-care (01) | LOC: LABWHC1 10-10 10:59 | PROVIDERS: ATTEND Family Medicine | DX: E66.9 Obesity, unspecified (principal); R73.03 Prediabetes | CPT/HCPCS: 36415; 82085; 84443 ==

== ENCOUNTER 2020-12-08 16:03 | Inpatient (IN) | payer MEDICARE ==
--- NOTE | 2020-12-08 17:06 | ED ---
Psych HPI - General Chief Complaint: Psychiatric Symptoms Stated Complaint: EPS eval Time Seen by Provider: 12/08/20 16:18 Source: police Mode of arrival: ambulatory - History of Present Illness Initial Comments: 35-year-old female with history of bipolar disorder presents to the emergency Department for psychiatric evaluation. Patient reports she feels like a failure and does not have any friends live with her. States a friend recently from Covid and now she has nobody else P2. States she called the crisis hotline and spoke with him or guarding her thoughts of self-harm and possible suicide but denies any plans. She denies any homicidal thoughts or ideations. She does not have any other complaints. - Related Data Home Medications Medication Instructions Recorded Confirmed Medroxyprogesterone Acetate 150 mg INJ Q84D 04/08/20 12/08/20 [Depo-Provera] Loratadine [Claritin] 10 mg PO DAILY PRN 12/08/20 12/08/20 fluPHENAZine decanoate [Prolixin 37.5 mg IM Q14D 12/08/20 12/08/20 Decanoate] Previous Rx's Medication Instructions Recorded [place] Carbonate 600 mg PO HS 30 Days cap 05/14/20 busPIRone HCL [Buspar] 30 mg PO BID 30 Days tab 05/14/20 Allergies Allergy/AdvReac Type Severity Reaction Status Date / Time nut - unspecified Allergy Unknown Verified 12/08/20 17:42 Penicillins AdvReac Rash/Hives Verified 12/08/20 17:42 Review of Systems ROS Statement: Those systems with pertinent positive or pertinent negative responses have been documented in the HPI. ROS Other: All systems not noted in ROS Statement are negative. Past Medical History Past Medical History: No Reported History Additional Past Medical History / Comment(s): AUSTISM History of Any Multi-Drug Resistant Organisms: None Reported Past Surgical History: Ear Surgery Past Psychological History: Anxiety, Depression Smoking Status: Never smoker Past Alcohol Use History: Occasional Past Drug Use History: None Reported General Exam Limitations: no limitations General appearance: alert, in no apparent distress, obese Head exam: Present: atraumatic, normocephalic, normal inspection Eye exam: Present: normal appearance, PERRL, EOMI Pupils: Present: normal accommodation ENT exam: Present: normal exam, normal oropharynx, mucous membranes moist Neck exam: Present: normal inspection, full ROM Respiratory exam: Present: normal lung sounds bilaterally. Absent: respiratory distress Cardiovascular Exam: Present: regular rate, normal rhythm, normal heart sounds Extremities exam: Present: normal inspection, full ROM Back exam: Present: normal inspection, full ROM Neurological exam: Present: alert, oriented X3, normal gait Psychiatric exam: Present: depressed, anxious Skin exam: Present: warm, dry, intact, normal color Course Vital Signs 12/08/20 16:04 Temperature 98.9 F Pulse Rate 105 H Respiratory 20 Rate Blood Pressure 166/107 O2 Sat by Pulse 99 Oximetry Medical Decision Making - Medical Decision Making 35-year-old female with history of bipolar disorder presents to the emergency Department for psychiatric evaluation. She reports thoughts of suicide with no plan. Also thoughts of self-harm but never actually committed. EPS evaluated patient and she will be admitted for further psychiatric management. Urine drug screen unremarkable. Case discussed with Dr. Denise. - Lab Data Lab Results 12/08/20 Range/Units 17:53 Urine Opiates Screen Not Detected (NotDetected) Ur Oxycodone Screen Not Detected (NotDetected) Urine Methadone Screen Not Detected (NotDetected) Ur Propoxyphene Screen Not Detected (NotDetected) Ur Barbiturates Screen Not Detected (NotDetected) U Tricyclic Antidepress Not Detected (NotDetected) Ur Phencyclidine Scrn Not Detected (NotDetected) Ur Amphetamines Screen Not Detected (NotDetected) U Methamphetamines Scrn Not Detected (NotDetected) U Benzodiazepines Scrn Not Detected (NotDetected) Urine Cocaine Screen Not Detected (NotDetected) U Marijuana (THC) Screen Not Detected (NotDetected) Disposition Clinical Impression: Adjustment reaction of adult life Disposition: ADMITTED IP TO THIS [facility] Condition: Fair Is patient prescribed a controlled substance at d/c from ED?: No Referrals: Hallie Simpson DO [Primary Care Provider] - 1-2 days Time of Disposition: 19:06
[2020-12-08 18:26] LABS: Amphetamine Screen,Urine Not Detected (NotDetected); Barbiturate Screen,Urine Not Detected (NotDetected); Benzodiazepines Screen,Urine Not Detected (NotDetected); Cocaine Screen,Urine Not Detected (NotDetected); Methadone Screen, Urine Not Detected (NotDetected); Opiate Screen,Urine Not Detected (NotDetected); Oxycodone Screen, Urine Not Detected (NotDetected); Phencyclidine Screen,Urine Not Detected (NotDetected); Tricyclic Antidepressant,Urine Not Detected (NotDetected); Urn Cannabinoid Scrn Not Detected (NotDetected)
[2020-12-08] MEDS ORDERED: MAGNESIUM HYDROXIDE 2,400 MG/10 ML CUP PO PRN (19:17)
[2020-12-08] MEDS ORDERED: LORazepam 2 MG/ML INJ IM PRN (19:21)
[2020-12-08] MEDS ORDERED: HALOPERIDOL LACTATE 5 MG/ML 1 ML VIAL IM PRN (19:22)
[2020-12-08] MEDS ORDERED: haloperidoL 5 MG TAB PO PRN (19:22)
[2020-12-08] MEDS ORDERED: fluPHENAZine DECANOATE 25 MG/ML 5ML MDV IM SCH (19:30)
[2020-12-08] MEDS ORDERED: NON FORMULARY DRUG (Medroxyprogesterone Acetate [Depo-Provera] 150 MG/ML Syringe) INJ SCH (19:30)
[2020-12-08 19:39] LABS: Appearance,Urine Clear (Clear); Bacteria,Urine Rare /hpf; Bilirubin,Urine Negative (Negative); Blood,Urine Negative (Negative); Color,Urine Yellow; Glucose,Urine (UA) Negative (Negative); Hyaline Casts,Urine 3 /lpf (0-2); Ketones,Urine Negative (Negative); Leukocyte Esterase,Urine Moderate (Negative); Mucus,Urine Rare /hpf; Nitrite,Urine Negative (Negative); PH, Urine 6.5 (5.0-8.0); Protein,Urine Negative (Negative); RBC,Urine 1 /hpf (0-5); Specific Gravity,Urine 1.012 (1.001-1.035); Squamous Epithelial Cell,Urine 2 /hpf (0-4); Urobilinogen,Urine <2.0 mg/dL (<2.0); WBC,Urine 7 /hpf (0-5)
[2020-12-08] MEDS: LORazepam 1 MG TAB PO PRN (20:05)
[2020-12-08] MEDS ORDERED: cloNIDine HCL 0.1 MG TAB PO STA (20:33)
[2020-12-08] MEDS: busPIRone HCl 10 MG TAB PO SCH (20:46)
[2020-12-08] MEDS: amLODIPine 5 MG TAB PO SCH (22:51)
[2020-12-09] MEDS: busPIRone HCl 10 MG TAB PO SCH ×2 (08:15→21:35)
[2020-12-09 10:27] LABS: Basophils # (A) 0.1 k/uL (0-0.2); Basophils % (A) 1 %; Eosinophils # (A) 0.2 k/uL (0-0.7); Eosinophils % (A) 2 %; HCT 43.7 % (34.0-46.0); HGB 15.2 gm/dL (11.4-16.0); Lymphocytes # (A) 1.8 k/uL (1.0-4.8); Lymphocytes % (A) 20 %; MCH 28.9 pg (25.0-35.0); MCHC 34.7 g/dL (31.0-37.0); MCV 83.3 fL (80.0-100.0); Mean Platelet Volume 6.3; Monocytes # (A) 0.5 k/uL (0-1.0); Monocytes % (A) 5 %; Neutrophils # (A) 6.6 k/uL (1.3-7.7); Neutrophils % (A) 72 %; Platelet Count 453 k/uL (150-450); RBC 5.24 m/uL (3.80-5.40); RDW 12.7 % (11.5-15.5); WBC 9.2 k/uL (3.8-10.6)
[2020-12-09 10:44] LABS: ALT 13 U/L (4-34); AST 20 U/L (14-36); African American GFR (CKD) >90 (>60 ml/min/1.73 sqM); Albumin 4.3 g/dL (3.5-5.0); Alkaline Phosphatase 77 U/L (38-126); Anion Gap 8 mmol/L; Blood Urea Nitrogen 8 mg/dL (7-17); Calcium 9.9 mg/dL (8.4-10.2); Carbon Dioxide 27 mmol/L (22-30); Chloride 107 mmol/L (98-107); Glucose 103 mg/dL (74-99); Non-African American GFR(CKD) 81 (>60 ml/min/1.73 sqM); Potassium 3.8 mmol/L (3.5-5.1); Sodium 142 mmol/L (137-145); Total Bilirubin 0.2 mg/dL (0.2-1.3); Total Protein 7.2 g/dL (6.3-8.2)
--- NOTE | 2020-12-09 12:28 | P.HP ---
Psychiatric H&P - . H&P Date: 12/09/20 History & Physical: Allergies Allergy/AdvReac Type Severity Reaction Status Date / Time nut - unspecified Allergy Unknown Verified 12/08/20 17:42 Penicillins AdvReac Mild Rash/Hives Verified 12/08/20 20:12 Vital Signs Temp 98 F 12/09/20 07:03 Pulse 102 H 12/09/20 07:03 Resp 16 12/09/20 07:03 BP 133/83 12/09/20 07:03 Pulse Ox 98 12/08/20 20:19 Intake & Output 12/08/20 12/09/20 12/09/20 18:59 06:59 18:59 Weight 73.482 kg 74.843 kg Laboratory Last Values WBC 9.2 k/uL (3.8-10.6) 12/09/20 09:48 RBC 5.24 m/uL (3.80-5.40) 12/09/20 09:48 Hgb 15.2 gm/dL (11.4-16.0) 12/09/20 09:48 Hct 43.7 % (34.0-46.0) 12/09/20 09:48 MCV 83.3 fL (80.0-100.0) 12/09/20 09:48 MCH 28.9 pg (25.0-35.0) 12/09/20 09:48 MCHC 34.7 g/dL (31.0-37.0) 12/09/20 09:48 RDW 12.7 % (11.5-15.5) 12/09/20 09:48 Plt Count 453 k/uL (150-450) H 12/09/20 09:48 MPV 6.3 12/09/20 09:48 Neutrophils % 72 % 12/09/20 09:48 Lymphocytes % 20 % 12/09/20 09:48 Monocytes % 5 % 12/09/20 09:48 Eosinophils % 2 % 12/09/20 09:48 Basophils % 1 % 12/09/20 09:48 Neutrophils # 6.6 k/uL (1.3-7.7) 12/09/20 09:48 Lymphocytes # 1.8 k/uL (1.0-4.8) 12/09/20 09:48 Monocytes # 0.5 k/uL (0-1.0) 12/09/20 09:48 Eosinophils # 0.2 k/uL (0-0.7) 12/09/20 09:48 Basophils # 0.1 k/uL (0-0.2) 12/09/20 09:48 Sodium 142 mmol/L (137-145) 12/09/20 09:48 Potassium 3.8 mmol/L (3.5-5.1) 12/09/20 09:48 Chloride 107 mmol/L (98-107) 12/09/20 09:48 Carbon Dioxide 27 mmol/L (22-30) 12/09/20 09:48 Anion Gap 8 mmol/L 12/09/20 09:48 BUN 8 mg/dL (7-17) 12/09/20 09:48 Creatinine 0.92 mg/dL (0.52-1.04) 12/09/20 09:48 Est GFR (CKD-EPI)AfAm >90 (>60 ml/min/1.73 sqM) 12/09/20 09:48 Est GFR (CKD-EPI)NonAf 81 (>60 ml/min/1.73 sqM) 12/09/20 09:48 Glucose 103 mg/dL (74-99) H 12/09/20 09:48 Calcium 9.9 mg/dL (8.4-10.2) 12/09/20 09:48 Total Bilirubin 0.2 mg/dL (0.2-1.3) 12/09/20 09:48 AST 20 U/L (14-36) 12/09/20 09:48 ALT 13 U/L (4-34) 12/09/20 09:48 Alkaline Phosphatase 77 U/L (38-126) 12/09/20 09:48 Total Protein 7.2 g/dL (6.3-8.2) 12/09/20 09:48 Albumin 4.3 g/dL (3.5-5.0) 12/09/20 09:48 TSH 2.520 mIU/L (0.465-4.680) 12/09/20 09:48 Urine Color Yellow 12/08/20 17:53 Urine Appearance Clear (Clear) 12/08/20 17:53 Urine pH 6.5 (5.0-8.0) 12/08/20 17:53 Ur Specific [place] 1.012 (1.001-1.035) 12/08/20 17:53 Urine Protein Negative (Negative) 12/08/20 17:53 Urine Glucose (UA) Negative (Negative) 12/08/20 17:53 Urine Ketones Negative (Negative) 12/08/20 17:53 Urine Blood Negative (Negative) 12/08/20 17:53 Urine Nitrite Negative (Negative) 12/08/20 17:53 Urine Bilirubin Negative (Negative) 12/08/20 17:53 Urine Urobilinogen <2.0 mg/dL (<2.0) 12/08/20 17:53 Ur Leukocyte Esterase Moderate (Negative) H 12/08/20 17:53 Urine RBC 1 /hpf (0-5) 12/08/20 17:53 Urine WBC 7 /hpf (0-5) H 12/08/20 17:53 Ur Squamous Epith Cells 2 /hpf (0-4) 12/08/20 17:53 Urine Bacteria Rare /hpf (None) H 12/08/20 17:53 Hyaline Casts 3 /lpf (0-2) H 12/08/20 17:53 Urine Mucus Rare /hpf (None) H 12/08/20 17:53 Urine HCG, Qual Not Detected (Not Detectd) 12/08/20 17:53 Urine Opiates Screen Not Detected (NotDetected) 12/08/20 17:53 Ur Oxycodone Screen Not Detected (NotDetected) 12/08/20 17:53 Urine Methadone Screen Not Detected (NotDetected) 12/08/20 17:53 Ur Propoxyphene Screen Not Detected (NotDetected) 12/08/20 17:53 Ur Barbiturates Screen Not Detected (NotDetected) 12/08/20 17:53 U Tricyclic Antidepress Not Detected (NotDetected) 12/08/20 17:53 Ur Phencyclidine Scrn Not Detected (NotDetected) 12/08/20 17:53 Ur Amphetamines Screen Not Detected (NotDetected) 12/08/20 17:53 U Methamphetamines Scrn Not Detected (NotDetected) 12/08/20 17:53 U Benzodiazepines Scrn Not Detected (NotDetected) 12/08/20 17:53 [place] 0.3 mmol/L 12/08/20 20:20 Urine Cocaine Screen Not Detected (NotDetected) 12/08/20 17:53 U Marijuana (THC) Screen Not Detected (NotDetected) 12/08/20 17:53 Coronavirus (PCR) Not Detected (Not Detectd) 12/08/20 18:55 12/09/20 12:27 IDENTIFYING DATA: Patient is a single, employed, 35 year old female with significant history of intellectual disability, autism spectrum disorder, and schizoaffective disorder, bipolar type who was admitted voluntarily for worsening depression with suicidal ideation. HPI: Patient presented to the hospital on 12/08/2020, brought in by police, with a chief complaint of suicidal ideation. As per CPS report, the patient has been reporting increasing depression has been exacerbated after the of her friend Kalli from Covid one month ago. The patient is currently under court order for mental health treatment and is connected with [facility]. The patient has a history of nonadherence with her medications and often demands to be placed back on her previous medications of Zyprexa, BuSpar, and Lexapro. Upon evaluation on the unit, the patient does admit that she has been feeling increasingly depressed and emotional for numerous reasons. She does highlight that her friend Kalli 1 month ago from Covid and is tearful during the interview. Furthermore, the patient reports that she has been having increasing stress due to her interactions with her friends. She reports that she has been losing friends due to their attitudes or her attitude. She states that one of her friends recently blocked her on Facebook. Another big stressor for her is the recent visitation of her family members. Both her and her guardian Yanci reports that her family is seeking to obtain guardianship despite not being actively involved in Mindi's life previously. Mindi reports this is very stressful for her. In regards to mood, the patient has been expressing low mood. She reports that she has been crying constantly. She also endorses suicidal ideation but denies any intention or plan. She reports no prior attempts at suicide. She reports no homicidal ideation, intention, and/or plan. She is not currently reporting any significant symptoms of bipolar disorder. She reports that she has been sleeping well and eating well. She is not reporting any grandiosity, mood swings, or increased goal-directed behavior. Furthermore, the patient is not endorsing any auditory or visualizations. She is not reporting any bizarre delusions, paranoia, or loose associations. The patient continues to demand that she be placed back on her previous medications which has been a common theme of hers even during her last hospitalization. The patient is directable at this time to continue her current medications and to address her current stressors. She is not reporting any issues with sleep or appetite. She is not reporting any issues regarding her hygiene and grooming. The patient does report that she feels that the lithium has been making her sick and overly sedating her as she has been getting into trouble at work. [place] level on admission is 0.3, indicating subtherapeutic levels. PAST PSYCHIATRIC HISTORY: The patient has previous diagnoses of autism spectrum disorder, intellectual disability, schizoaffective disorder, bipolar type. She currently follows with Dr. Dunaway at [facility]. The patient has had multiple trials of psychotropic medications including Depakote, Wellbutrin, lithium, Haldol, Risperdal, Ativan, BuSpar, Lexapro, and Zyprexa. The patient has a significant history of nonadherence with medications and her previous hospital stay was placed on Prolixin Decanoate 37.5 mg IM every 2 weeks. [place] was also added on to her regimen. The patient has had multiple inpatient psychiatric hospitalizations, with the last one being in April 2020 on this unit for more than a month. Patient denies any history of suicide attempts in the past. PMH: Past Medical History: No Reported History Additional Past Medical History / Comment(s): AUSTISM History of Any Multi-Drug Resistant Organisms: None Reported Past Surgical History: Ear Surgery Past Psychological History: Anxiety, Depression Smoking Status: Never smoker Past Alcohol Use History: Occasional Past Drug Use History: None Reported ALLERGIES: Penicillins, not ALLERGY CHEMICAL DEPENDENCY HISTORY: Patient denies any tobacco, marijuana, or illicit drug use. She reports 1 drink on occasion. FAMILY PSYCHIATRIC/SUBSTANCE USE HISTORY: The patient reports no significant family psychiatric history. SOCIAL HISTORY: Patient is single, never . She is currently employed by [employer]. Dee Gutiérrez is her guardian. Patient lives alone in her own apartment. MENTAL STATUS EXAM: General Appearance: Patient appears to be stated age is alert, directable, and attempts to cooperate. Patient appears to have good hygiene and grooming. Behavior: Patient is seated without any agitated behavior. Psychomotor activity appears normal. Speech: Patient's speech is fluent and nonpressured. Mood/Affect: Patient reports their mood is depressed, affect is congruent, tearful, sad. Suicidality/Homicidality: The patient is currently denying any suicidal or homicidal ideation, intention, and/or plan. Perceptions: Patient denies any visual hallucinations and denies any auditory hallucinations Though content/process: There is no evidence of any delusional thought content and thought process is linear and goal-directed. Patient continues to fixate on previous medications she has had in the past. Memory and concentration: AOX3, grossly intact for the purposes of this session. Can spell "WORLD" backwards Judgment and insight: Fair STRENGTHS/WEAKNESSES: Strength is that the patient is enrolled at comprehensive services, is currently under court order, and is gainfully employed. Weakness is that the patient has poor frustration tolerance and difficulty with change. INTELLECT: average IMPRESSIONS: Schizoaffective disorder, bipolar type Autism spectrum disorder Intellectual disability PLAN: -Patient is admitted under voluntary status to MHU for stabilization of psychiatric symptoms and safety. Patient signed adult voluntary form and medication consent and is placed in patient's chart. The patient is currently under court order for psychiatric treatment. -Medications : Continue Prolixin Decanoate 25 mg IM [id number], next dose due on 12/19/2020. We will increase lithium to 450 mg by mouth twice a day for management of mood stabilization. [place] level on admission was 0.3 indicating subtherapeutic levels. Continue BuSpar 30 mg by mouth twice a day -Supportive psychotherapy including reflective listening and cognitive reframing as well as grief counseling was performed during this initial psychiatric liliana luation. -Ativan and Haldol PRN for agitation/aggression -Patient was informed of the risks, benefits and side effects of the medication and patient verbally consented to taking the medications. -Internal Medicine consult to perform medical evaluation and physical. -SW on board for discharge planning. Encourage patient to participate in groups to work on coping skills. 12/09/20 12:28
[2020-12-09] MEDS ORDERED: LITHIUM CARBONATE 300 MG CAP PO SCH (21:00)
[2020-12-09] MEDS: amLODIPine 5 MG TAB PO SCH (21:35)
[2020-12-09] MEDS: LITHIUM CARBONATE 150 MG CAP PO SCH (21:36)
[2020-12-10] MEDS: LITHIUM CARBONATE 150 MG CAP PO SCH (08:25)
[2020-12-10] MEDS: busPIRone HCl 10 MG TAB PO SCH ×2 (08:25→20:44)
--- NOTE | 2020-12-10 10:09 | P.PN ---
Progress Note - Text Progress Note Date: 12/10/20 Interval History: Patient was seen resting in bed and was directable and agreeable to speak with typewriter aligner in her room. Patient reports that she is feeling slightly better. She is currently not reporting any suicidal or homicidal ideation, intention, and/or plan. She reports that she is looking into finding living arrangements upon discharge. She is not reporting any auditory or visual hallucinations. She denies any paranoia or other delusions. She reports no issues with sleep or appetite at this time. The patient has been refusing lithium, stating that his difficult time swallowing the pill. She is otherwise at hand with her BuSpar and is under court order and understands that she needs to continue receiving her Prolixin decanoate injections. The patient does participate and individual and milieu therapies. She has been calm and appropriate in groups. Mental Status Exam: General Appearance: Patient appears to be stated age is alert, directable, and cooperative. Good hygiene and grooming. Behavior: Patient is calmly seated without any agitated behavior. Normal psychomotor activity. Eye contact is appropriate. Speech: Patient's speech is fluent and nonpressured. Mood/Affect: Mood is improving mildly, affect is congruent and constricted. Suicidality/Homicidality: Patient denies having any suicidal or homicidal ideation intent or plan. Perceptions: Patient denies any visual hallucinations and denies any auditory hallucinations Though content/process: There is no evidence of any delusional thought content and thought process is linear and goal-directed. Memory and concentration: AOX3, grossly intact for the purposes of this session Judgment and insight: Improving mildly Vital Signs Temp 98 F 12/09/20 07:03 Pulse 110 H 12/09/20 21:36 Resp 20 12/09/20 21:36 BP 131/95 12/09/20 21:36 Pulse Ox 98 12/08/20 20:19 Laboratory Results - Last 24 Hours 12/08/20 12/09/20 12/09/20 20:20 09:48 09:48 WBC 9.2 RBC 5.24 Hgb 15.2 Hct 43.7 MCV 83.3 MCH 28.9 MCHC 34.7 RDW 12.7 Plt Count 453 H MPV 6.3 Neutrophils % 72 Lymphocytes % 20 Monocytes % 5 Eosinophils % 2 Basophils % 1 Neutrophils # 6.6 Lymphocytes # 1.8 Monocytes # 0.5 Eosinophils # 0.2 Basophils # 0.1 Sodium 142 Potassium 3.8 Chloride 107 Carbon Dioxide 27 Anion Gap 8 BUN 8 Creatinine 0.92 Est GFR (CKD-EPI)AfAm >90 Est GFR (CKD-EPI)NonAf [address] Glu mg/dL 108 Hemoglobin A1c 5.4 Calcium 9.9 Total Bilirubin 0.2 AST 20 ALT 13 Alkaline Phosphatase 77 Total Protein 7.2 Albumin 4.3 TSH 2.520 Assessment Schizoaffective disorder, bipolar type Autism spectrum disorder Intellectual disability Plan: -Patient continues to meet criteria for inpatient psychiatric admission for symptom stabilization and safety. Patient has signed adult voluntary form and medication consent and was placed in patient's chart. -Medications: Continue Prolixin Decanoate 25 mg IM [id number], next dose due on 12/19/2020. [place] level on admission was 0.3 indicating subtherapeutic levels. There is no liquid lithium on formulary. We will change to lithobid ER 450 mg at bedtime. Continue BuSpar 30 mg by mouth twice a day -When necessary Ativan and Haldol for agitation/aggression. -SW on board for discharge planning. Encouraged the patient to participate in milieu.
[2020-12-10] MEDS: LORazepam 1 MG TAB PO PRN (12:27)
[2020-12-10] MEDS: MAG HYDROX/AL HYDROX/SIMETH 30 ML CUP PO PRN ×2 (12:28→16:46)
[2020-12-10] MEDS: ACETAMINOPHEN TAB 325 MG TAB PO PRN (13:19)
[2020-12-10] MEDS: amLODIPine 5 MG TAB PO SCH (20:44)
[2020-12-10] MEDS ORDERED: LITHIUM CARBONATE ER 450 MG TABLET.ER PO SCH (21:00)
--- NOTE | 2020-12-10 23:05 | P.CONS ---
History of Present Illness - Reason for Consult Consult date: 12/09/20 medical eval - Chief Complaint suicidal - History of Present Illness Mindi Velez is a 35 yo F with PMH of major depression, autism spectrum disorder, intellectual disability who was brought to the ED by police for worsening depression and suicidal ideation. Initial presentation significant for BP 166/100, labs unremarkable and UDS negative. Today, she denies chest pain, shortness of breath, vision change, headache. She endorses depression this morning. Review of Systems All systems: negative Constitutional: Denies chills, Denies fever Eyes: denies blurred vision, denies pain Ears, nose, mouth and throat: Denies headache, Denies sore throat Cardiovascular: Denies chest pain, Denies shortness of breath Respiratory: Denies cough Gastrointestinal: Denies abdominal pain, Denies diarrhea, Denies nausea, Denies vomiting Genitourinary: Denies dysuria, Denies hematuria Musculoskeletal: Denies myalgias Integumentary: Denies pruritus, Denies rash Neurological: Denies numbness, Denies weakness Psychiatric: Denies anxiety, Denies depression Endocrine: Denies fatigue, Denies weight change Past Medical History Past Medical History: No Reported History Additional Past Medical History / Comment(s): AUSTISM, Pt states she also has cerebral palsy. History of Any Multi-Drug Resistant Organisms: None Reported Past Surgical History: Ear Surgery Smoking Status: Never smoker Medications and Allergies Home Medications Medication Instructions Recorded Confirmed Type Medroxyprogesterone Acetate 150 mg INJ Q84D 04/08/20 12/08/20 History [Depo-Provera] [place] Carbonate 600 mg PO HS 30 Days cap 05/14/20 12/08/20 Rx busPIRone HCL [Buspar] 30 mg PO BID 30 Days tab 05/14/20 12/08/20 Rx Loratadine [Claritin] 10 mg PO DAILY PRN 12/08/20 12/08/20 History fluPHENAZine decanoate [Prolixin 37.5 mg IM Q14D 12/08/20 12/08/20 History Decanoate] Allergies Allergy/AdvReac Type Severity Reaction Status Date / Time nut - unspecified Allergy Unknown Verified 12/08/20 17:42 Penicillins AdvReac Mild Rash/Hives Verified 12/08/20 20:12 Physical Exam General: disheveled, obese, NAD. Vitals reviewed Eyes: PERRL, EOMI, conjunctiva normal HENT: normocephalic, mucus membranes moist Neck: supple, no JVD Lungs: normal respiratory effort, no wheezes or rales CV: Regular rate and rhythm, no murmur. Peripheral pulses 2+ Abdomen: soft, nondistended, no organomegaly Lymph: no cervical or axillary LAD Skin: warm and dry. Neuro: A&Ox3, depressed mood and affect Results CBC & Chem 7: 12/09/20 09:48 12/09/20 09:48 Assessment and Plan (1) Essential hypertension Current Visit: Yes Status: Acute Code(s): I10 - ESSENTIAL (PRIMARY) HYPERTENSION SNOMED Code(s): 98164422 (2) Acute psychosis Current Visit: No Status: Acute Code(s): F23 - BRIEF PSYCHOTIC DISORDER SNOMED Code(s): 96735510 (3) Schizoaffective disorder, bipolar type Current Visit: No Status: Acute Priority: High Code(s): F25.0 - SCHIZOAFFECTIVE DISORDER, BIPOLAR TYPE SNOMED Code(s): 46623634 (4) Autism spectrum disorder Current Visit: No Status: Chronic Priority: Medium Code(s): F84.0 - AUTISTIC DISORDER SNOMED Code(s): 37557877 (5) Intellectual disability Current Visit: No Status: Chronic Priority: Medium Code(s): F79 - UNSPECIFIED INTELLECTUAL DISABILITIES SNOMED Code(s): 017523893 Plan: 1. Acute psychosis, schizoaffective disorder. Management per psychiatry 2. Essential hypertension. Start [facility][1]
[2020-12-11] MEDS: busPIRone HCl 10 MG TAB PO SCH ×2 (08:57→21:01)
--- NOTE | 2020-12-11 11:00 | P.PN ---
Progress Note - Text Progress Note Date: 12/11/20 Interval History: Patient was seen resting in bed and was directable and agreeable to speak with pattern chart writer in the office. The patient remains adamant that she wants to be off lithium. She reports the lithium is making her tired throughout the day. She prefers to take the medication only at night but states that it is difficult for her to swallow the pill. She is currently not reporting any suicidal or homicidal ideation, intention, and/or plan. She is not reporting any auditory or visual hallucinations. She is denying any paranoia or other delusions. She continues to remain fixated on her medication regimen4. The patient has been attending groups with high participation.She reports some difficulties with sleep last night. She is otherwise not reporting any issues with appetite. Mental Status Exam: General Appearance: Patient appears to be stated age is alert, directable, and cooperative. Good hygiene and grooming. Behavior: Patient is calmly seated without any agitated behavior. Normal psychomotor activity. Eye contact is appropriate. Speech: Patient's speech is fluent and nonpressured. Mood/Affect: Mood is annoyed, affect is Somewhat irritable Suicidality/Homicidality: Patient denies having any suicidal or homicidal ideation intent or plan. Perceptions: Patient denies any visual hallucinations and denies any auditory hallucinations Though content/process: There is no evidence of any delusional thought content and thought process is linear and goal-directed. Memory and concentration: AOX3, grossly intact for the purposes of this session Judgment and insight: Improving mildly Vital Signs Temp 98.2 F 12/11/20 06:25 Pulse 80 12/11/20 06:25 Resp 14 12/11/20 06:25 BP 152/80 12/11/20 06:25 Pulse Ox 98 12/08/20 20:19 Assessment Schizoaffective disorder, bipolar type Autism spectrum disorder Intellectual disability Plan: -Patient continues to meet criteria for inpatient psychiatric admission for symptom stabilization and safety. Patient has signed adult voluntary form and medication consent and was placed in patient's chart. -Medications: Continue Prolixin Decanoate 25 mg IM [id number], next dose due on 12/19/2020. [place] level on admission was 0.3 indicating subtherapeutic levels. There is no liquid lithium on formulary. Increase [place] ER 900 mg at bedtime. Will look at discharging the patient on lithium liquid. Continue BuSpar 30 mg by mouth twice a day -When necessary Ativan and Haldol for agitation/aggression. -SW on board for discharge planning. Encouraged the patient to participate in milieu.
[2020-12-11] MEDS: ACETAMINOPHEN TAB 325 MG TAB PO PRN ×2 (11:39→17:26)
[2020-12-11] MEDS: MAG HYDROX/AL HYDROX/SIMETH 30 ML CUP PO PRN ×2 (11:39→15:17)
[2020-12-11] MEDS ORDERED: LITHIUM CARBONATE ER 450 MG TABLET.ER PO SCH (21:00)
[2020-12-11] MEDS ORDERED: DIVALPROEX SPRINKLE 125 MG CAP.SPRINK PO SCH (21:00)
[2020-12-11] MEDS: amLODIPine 5 MG TAB PO SCH (21:01)
[2020-12-11] MEDS: DIVALPROEX SPRINKLE 125 MG CAP.SPRINK PO SCH (21:02)
[2020-12-12 07:06] VITALS: RESP 18
[2020-12-12] MEDS: busPIRone HCl 10 MG TAB PO SCH ×2 (09:45→19:44)
[2020-12-12] MEDS: DIVALPROEX SPRINKLE 125 MG CAP.SPRINK PO SCH ×2 (09:52→19:44)
--- NOTE | 2020-12-12 10:05 | P.PN ---
Progress Note - Text Progress Note Date: 12/12/20 Interval History: Patient was seen resting in bed and was directable and agreeable to speak with designer/writer in the office. The patient was adherent with her medications yesterday and the Depakote. She reports that it is causing her some difficulties with sleep, stating that she woke up last night at 2:30 AM. Despite this, the patient reported that overall she was able to return back to sleep. The patient is currently requesting an antidepressant such as Lexapro. The patient was informed that we will not start any antidepressant at this time. She is currently not reporting any suicidal or homicidal ideation, intention, and/or plan. She is not reporting auditory or visual hallucinations. She is denying any paranoia or other delusions. The patient reports that she feels tired but is denying any other significant side effects from medications. The patient becomes upset today stating that "I'm not able to take care of myself." The patient states that she does not feel safe going home and she wants to be placed in a group setting. She was informed that she is likely to return back to her apartment prior to a correction being found and established for her. Mental Status Exam: General Appearance: Patient appears to be stated age is alert, directable, and cooperative. Good hygiene and grooming. Behavior: Patient is calmly seated without any agitated behavior. Normal psychomotor activity. Eye contact is appropriate. Tearful but appropriate. Speech: Patient's speech is fluent and nonpressured. Mood/Affect: Mood is Sad, affect is congruent, tearful. Suicidality/Homicidality: Patient denies having any suicidal or homicidal ideation intent or plan. Perceptions: Patient denies any visual hallucinations and denies any auditory hallucinations Though content/process: There is no evidence of any delusional thought content and thought process is linear and goal-directed. Memory and concentration: AOX3, grossly intact for the purposes of this session Judgment and insight: Fair Vital Signs Temp 98.2 F 12/12/20 06:00 Pulse 82 12/12/20 06:00 Resp 18 12/12/20 06:00 BP 131/89 12/12/20 06:00 Pulse Ox 98 12/08/20 20:19 Assessment Schizoaffective disorder, bipolar type Autism spectrum disorder Intellectual disability Plan: -Patient continues to meet criteria for inpatient psychiatric admission for symptom stabilization and safety. Patient has signed adult voluntary form and medication consent and was placed in patient's chart. -Medications: Continue Prolixin Decanoate 25 mg IM [id number], next dose due on 12/19/2020. Increase Depakote sprinkles to 500 mg by mouth twice a day Continue BuSpar 30 mg by mouth twice a day -The risks, benefits, and treatment alternatives were discussed with the patient at length. It is strongly recommended that the patient is placed on a mood stabilizer as the patient has had significant manic symptoms which led to a prolonged hospital stay during her previous hospitalization. We will obtain a Depakote level over the weekend. -When necessary Ativan and Haldol for agitation/aggression. -SW on board for discharge planning. Encouraged the patient to participate in milieu.
[2020-12-12] MEDS: MAG HYDROX/AL HYDROX/SIMETH 30 ML CUP PO PRN ×2 (13:06→19:44)
[2020-12-12] MEDS: ACETAMINOPHEN TAB 325 MG TAB PO PRN (14:23)
[2020-12-12] MEDS: LORazepam 1 MG TAB PO PRN (14:24)
[2020-12-12] MEDS: amLODIPine 5 MG TAB PO SCH (19:44)
[2020-12-13] MEDS: busPIRone HCl 10 MG TAB PO SCH ×2 (09:14→20:53)
[2020-12-13] MEDS: DIVALPROEX SPRINKLE 125 MG CAP.SPRINK PO SCH ×2 (09:14→20:55)
[2020-12-13] MEDS: LORATADINE 10 MG TAB PO PRN (10:11)
[2020-12-13] MEDS: guaiFENesin 600 MG TABLET.ER PO SCH ×2 (10:11→20:53)
[2020-12-13] MEDS: MAG HYDROX/AL HYDROX/SIMETH 30 ML CUP PO PRN ×2 (12:26→20:06)
[2020-12-13] MEDS: ACETAMINOPHEN TAB 325 MG TAB PO PRN (14:35)
--- NOTE | 2020-12-13 17:47 | PN ---
PROGRESS NOTE DATE OF SERVICE: 12/13/2020 CHIEF COMPLAINT: The patient reportedly was depressed and had made suicide statements. She had grief from the recent of a friend. INTERVAL HISTORY: Patient has been doing fair. She had a quiet day yesterday. She comes out in the day area. She wonders about quite a bit. She will interact with peers to some extent. Often she approaches staff and will initiate conversation of one sort or another. Often she has various complaints, sometimes physical and sometimes relating to her medications and treatment. She attended about half the groups yesterday. She slept fairly well. Today she has been up. Overall, she is doing about the same. She has an intense manner at times. Again, she has attended about half the groups today. She talked about not wanting to be discharged, though she really did not clarify specifics of that. She insisted that her medications be changed to Buspar, Zyprexa and an antidepressant which she said helped her in the past. She was insistent about the idea that she did not want to be on a "mood stabilizer." When I asked details she was vague. At one point she talked about having leg pain and believed that was coming from one of her medications. She appears to tolerate her psychotropic medications. MENTAL STATUS: Patient gave good eye contact. At times she had quite an intense manner. It was noteworthy that she might be quite insistent on something she was focused on, then when I saw her at different times on the unit she seemed to veer off from some of those thoughts altogether. Her affect at times was intense and at other times she had a fairly calm manner. Her mood was reserved. She did not appear to be significantly distressed, though she does get anxious from time to time. There was no clear evidence of thought disorder. She was oriented and alert. ASSESSMENT: I will continue the current diagnosis and treatment plan. I will continue psychotropic medications the same including Buspar 30 mg twice a day, Depakote 500 mg twice a day and Prolixin Decanoate 37.5 mg a day. Apparently she will be due for an increase in the Prolixin Decanoate on Wednesday. We discussed discharge planning issues with the team. We will focus on stabilization and coordinating with outpatient resources for followup care. MMODL / IJN: [id number] /
[2020-12-13] MEDS: amLODIPine 5 MG TAB PO SCH (20:53)
[2020-12-14] MEDS: LORATADINE 10 MG TAB PO PRN (09:26)
[2020-12-14] MEDS: busPIRone HCl 10 MG TAB PO SCH ×2 (09:26→20:33)
[2020-12-14] MEDS: guaiFENesin 600 MG TABLET.ER PO SCH ×3 (09:26→20:32)
[2020-12-14] MEDS: DIVALPROEX SPRINKLE 125 MG CAP.SPRINK PO SCH ×3 (09:27→20:31)
[2020-12-14] MEDS: MAG HYDROX/AL HYDROX/SIMETH 30 ML CUP PO PRN (14:01)
--- NOTE | 2020-12-14 14:44 | P.PN ---
Progress Note - Text Progress Note Date: 12/14/20 Subjective: Patient was seen today as a cross coverage for Dr. Gilbert. The patient was evaluated, chart reviewed, case discussed with the treatment team. Patient reports poor sleep last night that she wakes up frequently, and appetite was reported as " at her today ". Patient has not been going to groups and other unit activities. The patient is not fully compliant with her medications and denies any adverse reactions. Patient reports will not take the mood stabilizers and she wants to get back on Zyprexa, Lexapro, and BuSpar. She reports will take only BuSpar but she will stop taking Depakote and Prolixin. Reports is still feeling depressed and feels them only with no friends, constantly unhappy and has passive suicidal ideation. Reports anger and agitation with mood swings. When she was asking about auditory or visual hallucinations, she responded "maybe but not sure". She was fixated on not to discharged back home and she requested to be discharged to care home. Objective: Vitals has been reviewed. Mental status examination; Appearance: The patient appears stated age, adequately groomed and dressed, no specific features. Gait/posture: Normal gait, Normal arm swinging: No abnormal movements. Attitude and behavior: Not fully engaged, partially cooperative, intermittent eye contact. Motor activity: Normal psychomotor activity Speech: Normal rate, tone. Mood: "Depressed ", "angry" Affect: Constricted Thought form: goal-directed, linear, coherent. Thought content: Non-delusional, reports passive suicidal thoughts, denies homicidal thoughts, denies intentions or plans. Perception: Didn't answer question about hallucinations and he reports may be. Attention: No impairment. Orientation: Patient patient was fully oriented to time place person and situation. Insight: Patient has limited insight about her psychiatric disorder. Judgment: Patient has limited judgment about her psychiatric treatment. Assessment: Schizoaffective disorder, bipolar type Autism spectrum disorder Intellectual disability Plan: Continue inpatient level of care due to need for further monitoring and stabilization Precautions: Continue 15 minutes check for safety. Consider medical consultation if any acute medical issues arise. Provide the patient individual, group therapy, substance use disorder counseling to give better insight and learn coping skills. Medications: Urged the patient to continue taking her medications as prescribed. Continue Depakote for mood stabilization, Prolixin for mood stabilization and psychotic symptoms, and BuSpar for anxiety. Continue as needed medications for psychiatric emergencies including psychosis, agitation and anxiety. Continue non-psychiatric medications for medical conditions as recommended by the medical team. Discharge patient to OUTPATIENT services upon a stabilization
[2020-12-14] MEDS: amLODIPine 5 MG TAB PO SCH (20:33)
[2020-12-15] MEDS: DIVALPROEX SPRINKLE 125 MG CAP.SPRINK PO SCH ×2 (09:08→20:40)
[2020-12-15] MEDS: LORATADINE 10 MG TAB PO PRN (09:09)
[2020-12-15] MEDS: guaiFENesin 600 MG TABLET.ER PO SCH ×2 (09:09→20:39)
[2020-12-15] MEDS: busPIRone HCl 10 MG TAB PO SCH ×2 (09:09→20:39)
[2020-12-15] MEDS: MAG HYDROX/AL HYDROX/SIMETH 30 ML CUP PO PRN ×2 (10:24→14:27)
--- NOTE | 2020-12-15 14:06 | P.PN ---
Progress Note - Text Progress Note Date: 12/15/20 Subjective: Patient was seen today as a cross coverage for Dr. Gilbert. The patient was evaluated, chart reviewed, case discussed with the treatment team. Patient continues to present as a same that she was irritable, feeling depressed, and having passive suicidal ideation. She still fixated on getting back on Zyprexa and Lexapro and she reports not taking Depakote or Prolixin. Also she was fixated on getting discharged to custodial and not to her family. Reports interrupted sleep last night but continued to have good appetite. Objective: Vitals has been reviewed. Mental status examination; Appearance: The patient appears stated age, adequately groomed and dressed, no specific features. Gait/posture: Normal gait, Normal arm swinging: No abnormal movements. Attitude and behavior: Not fully engaged, partially cooperative, intermittent eye contact. Motor activity: Normal psychomotor activity Speech: Normal rate, tone. Mood: "Depressed ", "angry" Affect: Constricted Thought form: goal-directed, linear, coherent. Thought content: Non-delusional, reports passive suicidal thoughts, denies homicidal thoughts, denies intentions or plans. Perception: Didn't answer question about hallucinations and he reports may be. Attention: No impairment. Orientation: Patient patient was fully oriented to time place person and situation. Insight: Patient has limited insight about her psychiatric disorder. Judgment: Patient has limited judgment about her psychiatric treatment. Assessment: Schizoaffective disorder, bipolar type Autism spectrum disorder Intellectual disability Plan: Continue inpatient level of care due to need for further monitoring and stabilization Precautions: Continue 15 minutes check for safety. Consider medical consultation if any acute medical issues arise. Provide the patient individual, group therapy, substance use disorder counseling to give better insight and learn coping skills. Medications: Encouraged the patient to continue taking her medications as prescribed. Continue Depakote for mood stabilization, Prolixin for mood stabilization and psychotic symptoms, and BuSpar for anxiety. Continue as needed medications for psychiatric emergencies including psychosis, agitation and anxiety. Continue non-psychiatric medications for medical conditions as recommended by the medical team. Discharge patient to OUTPATIENT services upon a stabilization
[2020-12-15] MEDS ORDERED: ARTIFICIAL TEARS-HYPROMELLOSE DROPS 15 ML BTL BOTH EYES PRN (15:39)
[2020-12-15] MEDS: amLODIPine 5 MG TAB PO SCH (20:39)
[2020-12-15] MEDS: LORazepam 1 MG TAB PO PRN (23:44)
[2020-12-16] MEDS: ACETAMINOPHEN TAB 325 MG TAB PO PRN (01:29)
[2020-12-16 06:51] VITALS: BP 133/68; PULSE 79; TEMP 98.4
[2020-12-16] MEDS: busPIRone HCl 10 MG TAB PO SCH (11:25)
[2020-12-16] MEDS: DIVALPROEX SPRINKLE 125 MG CAP.SPRINK PO SCH (11:25)
[2020-12-16] MEDS: guaiFENesin 600 MG TABLET.ER PO SCH (11:25)
--- NOTE | 2020-12-16 11:43 | P.DS ---
Providers Date of admission: 12/08/20 19:07 Expected date of discharge: 12/16/20 Attending physician: Hong Gilbert MD Consults: 12/08/20 19:17 Consult Physician Routine Consulting Provider: Ashok Rodarte Consult Reason/Comments: New Admission H & P Do you want consulting provider notified?: Already Contacted Primary care physician: Hallie Simpson - Discharge Diagnosis(es) (1) Schizoaffective disorder, bipolar type Current Visit: No Status: Acute Priority: High (2) Autism spectrum disorder Current Visit: Yes Status: Chronic Priority: Medium (3) Intellectual disability Current Visit: Yes Status: Chronic Priority: Medium Hospital Course: Admission HPI: Patient is a single, employed, 35 year old female with significant history of intellectual disability, autism spectrum disorder, and schizoaffective disorder, bipolar type who was admitted voluntarily for worsening depression with suicidal ideation. Patient presented to the hospital on 12/08/2020, brought in by police, with a chief complaint of suicidal ideation. As per CPS report, the patient has been reporting increasing depression has been exacerbated after the of her friend Kalli from [place] one month ago. The patient is currently under court order for mental health treatment and is connected with [facility]. The patient has a history of nonadherence with her medications and often demands to be placed back on her previous medications of Zyprexa, BuSpar, and Lexapro. Upon evaluation on the unit, the patient does admit that she has been feeling increasingly depressed and emotional for numerous reasons. She does highlight that her friend Kalli 1 month ago from [place] and is tearful during the interview. Furthermore, the patient reports that she has been having increasing stress due to her interactions with her friends. She reports that she has been losing friends due to their attitudes or her attitude. She states that one of her friends recently blocked her on Facebook. Another big stressor for her is the recent visitation of her family members. Both her and her guardian Yanci reports that her family is seeking to obtain guardianship despite not being actively involved in Mindi's life previously. Mindi reports this is very stressful for her. In regards to mood, the patient has been expressing low mood. She reports that she has been crying constantly. She also endorses suicidal ideation but denies any intention or plan. She reports no prior attempts at suicide. She reports no homicidal ideation, intention, and/or plan. She is not currently reporting any significant symptoms of bipolar disorder. She reports that she has been sleeping well and eating well. She is not reporting any grandiosity, mood swings, or increased goal-directed behavior. Furthermore, the patient is not endorsing any auditory or visualizations. She is not reporting any bizarre delusions, paranoia, or loose associations. The patient continues to demand that she be placed back on her previous medications which has been a common theme of hers even during her last hospitalization. The patient is directable at this time to continue her current medications and to address her current stressors. She is not reporting any issues with sleep or appetite. She is not reporting any issues regarding her hygiene and grooming. The patient does report that she feels that the lithium has been making her sick and overly sedating her as she has been getting into trouble at work. [place] level on admission is 0.3, indicating subtherapeutic levels. The patient has previous diagnoses of autism spectrum disorder, intellectual disability, schizoaffective disorder, bipolar type. She currently follows with Dr. Dunaway at [facility]. The patient has had multiple trials of psychotropic medications including Depakote, Wellbutrin, lithium, Haldol, Risperdal, Ativan, BuSpar, Lexapro, and Zyprexa. The patient has a significant history of nonadherence with medications and her previous hospital stay was placed on Prolixin Decanoate 37.5 mg IM every 2 weeks. [place] was also added on to her regimen. The patient has had multiple inpatient psychiatric hospitalizations, with the last one being in April 2020 on this unit for more than a month. Patient denies any history of suicide attempts in the past. Hospital course: Upon admission to the unit patient was initially presenting well aside from generalized sadness and tearfulness related to her situation with her friends and her increased feelings of loneliness. Patient was however directable and agreeable to commence treatment. She was evaluated by the medical team for history and physical examination as well. The patient was restarted on her lithium which was found to be subtherapeutic. The patient continually expressed a strong desire to be back on her previous regimen of lexapro, zyprexa, and buspar but was informed that this will not be the case due to her previous nonadherence with treatment and her manic episode this past year. Overall the patient presented well on the unit and was approrpiate with staff and peers and attending groups with high participation. She continued to express sadness regarding her situation and became fixated on the thought that she cannot be by herself and that she is very lonely. Because of this, the patient has been expressing a strong desire to stay inpatient. She was continually informed that this cannot occur and that she will have to be discharged. The patient's lithium was switched to depakote sprinkles to encourage adherence. This medication may be sprinkled into food such as yogurt to help. On the day of discharge, the patient is not endorsing any suicidal or homicidal ideation, intention, or plan she is not reporting any auditory or visual hallucinations. She denied paranoia or delusions. She's been attending groups. Patient continues to express a strong desire to remain inpatient until she finds a jail. She was informed that this will not be the case. She has not been adherent with her oral medications and this will be a continuing point of conflict with the patient but she is receiving her prolixin decanoate regularly. The plan was discussed with the patient's guardian at length. This provider discussed the risks, benefits, and alternatives of her medications and will continue to encourage adherence. Mental status exam: General Appearance: Patient appears to be stated age is alert, pleasant, and referral coordinator perative. Patient is in no acute distress and has fair hygiene and grooming. Behavior: Patient is calmly seated without any agitated behavior. Normal psychomotor activity. Speech: Patient's speech is fluent and nonpressured. Mood/Affect: Patient reports their mood is "I'm okay", affect is congruent but a little nervous. Suicidality/Homicidality: Patient denies having any suicidal or homicidal ideation, intention and/or plan. Perceptions: Patient denies any auditory or visual hallucinations. Though content/process: There is no evidence of any delusional thought content and thought process is linear and goal-directed. Patient is future-oriented. Memory and concentration: AOX3, grossly intact for the purposes of this session. Can spell "WORLD" backwards correctly. Judgment and insight: Improved with guarded prognosis Impression: Schizoaffective disorder, bipolar type Autism spectrum disorder Intellectual disability Plan: -Continue with discharge today as patient has improved and stabilized psychiatrically and is not currently an imminent threat to herself and/or others. Patient will remain at chronically elevated risk for harm to self and/or others due to her nonadherence with treatment. She has never attempted suicide in the past and is episcopalian, future-oriented and has support through her guardian. Despite medication nonadherence she is adherent with her follow-up ap pointments. -Continue medications: Prolixin Decanoate 25 mg IM [id number], next dose due on 12/19/2020 Buspar 30 mg PO BID for anxiety Depakote Sprinkle 500 mg PO BID for mood stabilization. -Patient was counseled on the need for medication compliance and appropriate follow-up at mental health and also primary care for medical issues. Patient verbalized understanding and agreed. -Social work to arrange for and conduct family meeting to ensure safety upon discharge and answer any questions/concerns. Social work also to arrange for patients follow up appointments with [facility] for psychiatric care along with follow up with primary care provider. -Patient counseled on abstaining from recreational drugs and marijuana and alcohol. Was informed/educated on the adverse effects on their physical and m ental health. Patient verbally agreed and understood. -Patient was instructed to return to the hospital or seek immediate medical care if their psychiatric or medical symptoms do worsen or reoccur. Laboratory Results WBC 9.2 k/uL (3.8-10.6) 12/09/20 09:48 RBC 5.24 m/uL (3.80-5.40) 12/09/20 09:48 Hgb 15.2 gm/dL (11.4-16.0) 12/09/20 09:48 Hct 43.7 % (34.0-46.0) 12/09/20 09:48 MCV 83.3 fL (80.0-100.0) 12/09/20 09:48 MCH 28.9 pg (25.0-35.0) 12/09/20 09:48 MCHC 34.7 g/dL (31.0-37.0) 12/09/20 09:48 RDW 12.7 % (11.5-15.5) 12/09/20 09:48 Plt Count 453 k/uL (150-450) H 12/09/20 09:48 MPV 6.3 12/09/20 09:48 Neutrophils % 72 % 12/09/20 09:48 Lymphocytes % 20 % 12/09/20 09:48 Monocytes % 5 % 12/09/20 09:48 Eosinophils % 2 % 12/09/20 09:48 Basophils % 1 % 12/09/20 09:48 Neutrophils # 6.6 k/uL (1.3-7.7) 12/09/20 09:48 Lymphocytes # 1.8 k/uL (1.0-4.8) 12/09/20 09:48 Monocytes # 0.5 k/uL (0-1.0) 12/09/20 09:48 Eosinophils # 0.2 k/uL (0-0.7) 12/09/20 09:48 Basophils # 0.1 k/uL (0-0.2) 12/09/20 09:48 Sodium 142 mmol/L (137-145) 12/09/20 09:48 Potassium 3.8 mmol/L (3.5-5.1) 12/09/20 09:48 Chloride 107 mmol/L (98-107) 12/09/20 09:48 Carbon Dioxide 27 mmol/L (22-30) 12/09/20 09:48 Anion Gap 8 mmol/L 12/09/20 09:48 BUN 8 mg/dL (7-17) 12/09/20 09:48 Creatinine 0.92 mg/dL (0.52-1.04) 12/09/20 09:48 Est GFR (CKD-EPI)AfAm >90 (>60 ml/min/1.73 sqM) 12/09/20 09:48 Est GFR (CKD-EPI)NonAf 81 (>60 ml/min/1.73 sqM) 12/09/20 09:48 Glucose 103 mg/dL (74-99) H 12/09/20 09:[address] Glu mg/dL 108 12/08/20 20:20 Hemoglobin A1c 5.4 % (4.0-6.0) 12/08/20 20:20 Calcium 9.9 mg/dL (8.4-10.2) 12/09/20 09:48 Total Bilirubin 0.2 mg/dL (0.2-1.3) 12/09/20 09:48 AST 20 U/L (14-36) 12/09/20 09:48 ALT 13 U/L (4-34) 12/09/20 09:48 Alkaline Phosphatase 77 U/L (38-126) 12/09/20 09:48 Total Protein 7.2 g/dL (6.3-8.2) 12/09/20 09:48 Albumin 4.3 g/dL (3.5-5.0) 12/09/20 09:48 TSH 2.520 mIU/L (0.465-4.680) 12/09/20 09:48 Urine Color Yellow 12/08/20 17:53 Urine Appearance Clear (Clear) 12/08/20 17:53 Urine pH 6.5 (5.0-8.0) 12/08/20 17:53 Ur Specific [place] 1.012 (1.001-1.035) 12/08/20 17:53 Urine Protein Negative (Negative) 12/08/20 17:53 Urine Glucose (UA) Negative (Negative) 12/08/20 17:53 Urine Ketones Negative (Negative) 12/08/20 17:53 Urine Blood Negative (Negative) 12/08/20 17:53 Urine Nitrite Negative (Negative) 12/08/20 17:53 Urine Bilirubin Negative (Negative) 12/08/20 17:53 Urine Urobilinogen <2.0 mg/dL (<2.0) 12/08/20 17:53 Ur Leukocyte Esterase Moderate (Negative) H 12/08/20 17:53 Urine RBC 1 /hpf (0-5) 12/08/20 17:53 Urine WBC 7 /hpf (0-5) H 12/08/20 17:53 Ur Squamous Epith Cells 2 /hpf (0-4) 12/08/20 17:53 Urine Bacteria Rare /hpf (None) H 12/08/20 17:53 Hyaline Casts 3 /lpf (0-2) H 12/08/20 17:53 Urine Mucus Rare /hpf (None) H 12/08/20 17:53 Urine HCG, Qual Not Detected (Not Detectd) 12/08/20 17:53 Urine Opiates Screen Not Detected (NotDetected) 12/08/20 17:53 Ur Oxycodone Screen Not Detected (NotDetected) 12/08/20 17:53 Urine Methadone Screen Not Detected (NotDetected) 12/08/20 17:53 Ur Propoxyphene Screen Not Detected (NotDetected) 12/08/20 17:53 Ur Barbiturates Screen Not Detected (NotDetected) 12/08/20 17:53 U Tricyclic Antidepress Not Detected (NotDetected) 12/08/20 17:53 Ur Phencyclidine Scrn Not Detected (NotDetected) 12/08/20 17:53 Ur Amphetamines Screen Not Detected (NotDetected) 12/08/20 17:53 U Methamphetamines Scrn Not Detected (NotDetected) 12/08/20 17:53 U Benzodiazepines Scrn Not Detected (NotDetected) 12/08/20 17:53 [place] 0.3 mmol/L 12/08/20 20:20 Urine Cocaine Screen Not Detected (NotDetected) 12/08/20 17:53 U Marijuana (THC) Screen Not Detected (NotDetected) 12/08/20 17:53 Coronavirus (PCR) Not Detected (Not Detectd) 12/08/20 18:55 Vital Signs Temp 98.4 F 12/16/20 06:00 Pulse 79 12/16/20 06:00 Resp 18 12/16/20 06:00 BP 133/68 12/16/20 06:00 Pulse Ox 98 12/08/20 20:19 Intake & Output 12/15/20 12/16/20 12/16/20 18:59 06:59 18:59 Weight 74.6 kg Allergies Allergy/AdvReac Type Severity Reaction Status Date / Time nut - unspecified Allergy Unknown Verified 12/08/20 17:42 Penicillins AdvReac Mild Rash/Hives Verified 12/08/20 20:12 Patient Condition at Discharge: Stable Plan - Discharge Summary Discharge Rx Participant: No New Discharge Prescriptions: New busPIRone HCl [Buspar] 30 mg PO BID 30 Days tab Loratadine [Claritin] 10 mg PO DAILY PRN 30 Days tab PRN Reason: Allergy Symptoms Divalproex Sprinkle [Depakote Sprinkle] 500 mg PO BID 30 Days cap.sprink amLODIPine [Norvasc] 5 mg PO DAILY@2100 30 Days tab Changed fluPHENAZine decanoate [Prolixin Decanoate] 37.5 mg IM Q14D #1 ml Discontinued [place] Carbonate 600 mg PO HS 30 Days cap busPIRone HCL [Buspar] 30 mg PO BID 30 Days tab Loratadine [Claritin] 10 mg PO DAILY PRN PRN Reason: Allergy Symptoms No Action Medroxyprogesterone Acetate [Depo-Provera] 150 mg INJ Q84D Discharge Medication List Medroxyprogesterone Acetate [Depo-Provera] 150 mg INJ Q84D 04/08/20 [History] Divalproex Sprinkle [Depakote Sprinkle] 500 mg PO BID 30 Days cap.sprink 12/16/20 [Rx] Loratadine [Claritin] 10 mg PO DAILY PRN 30 Days tab 12/16/20 [Rx] amLODIPine [Norvasc] 5 mg PO DAILY@2100 30 Days tab 12/16/20 [Rx] busPIRone HCl [Buspar] 30 mg PO BID 30 Days tab 12/16/20 [Rx] fluPHENAZine decanoate [Prolixin Decanoate] 37.5 mg IM Q14D #1 ml 12/16/20 [Rx] Follow up Appointment(s)/Referral(s): [facility] [Outside] - 1 Week (12-17-20 @ 9:00 with Eileen Stoll at [facility] office 12-24-20 @ 3:[address] Dunaway at [facility] office ) Hallie Simpson DO [Primary Care Provider] - 1-2 days Activity/Diet/Wound Care/Special Instructions: Activity and diet as tolerated. Avoid the use of street drugs and alcohol. Take all medications as prescribed. When you are in need of refills on your medications please contact your medical provider and/or outpatient psychiatrist to have this done. Please go to scheduled outpatient appointment for aftercare treatment. If symptoms return or become worse, call the crisis line at and/or go to the nearest emergency room for evaluation. Discharge Disposition: HOME SELF-CARE
[2020-12-19] MEDS ORDERED: fluPHENAZine DECANOATE 25 MG/ML 5ML MDV IM SCH (12:00)
== END 2020-12-16 13:24 | disposition home or self-care (01) | DRG 885 ==
LOC: EC 16:03 → 3MHU 19:07
PROVIDERS: ADMIT Psychiatry & Neurology Psychiatry; ATTEND Psychiatry & Neurology Psychiatry
DX: F25.0 Schizoaffective disorder, bipolar type (principal); R45.851 Suicidal ideations; F30.9 Manic episode, unspecified; F43.22 Adjustment disorder with anxiety; F79 Unspecified intellectual disabilities; F84.0 Autistic disorder; G80.9 Cerebral palsy, unspecified; I10 Essential (primary) hypertension; Z79.899 Other long term (current) drug therapy; Z91.14 Patient's other noncompliance with medication regimen; Z20.822 Contact with and (suspected) exposure to COVID-19
CPT/HCPCS: 80053; 80178; 80306; 81001; 81025; 82075; 83036; 84443; 85025; 87635; 99285

== ENCOUNTER → 2022-12-22 | Outpatient (CLI) | payer MEDICARE ==
[2022-12-22 20:12] LABS: HCT 47.2 % (37.2-46.3); MCH 27.3 pg (27.0-32.0); MCHC 31.8 d/dL (32.0-37.0); NRBC Per 100 WBC 0 X 10*3/uL (0.00-0.01); Platelet Count 327 X 10*3/uL (140-440); RBC 5.49 X 10*6/uL (4.10-5.20); RDW 13.4 % (11.5-14.5)
[2022-12-23 05:23] LABS: ALT 28 U/L (8-44); AST 26 U/L (13-35); Albumin 4.3 d/dL (3.8-4.9); Albumin/Globulin Ratio 1.39 Ratio (1.60-3.17); Alkaline Phosphatase 69 U/L (41-126); BUN/Creat Ratio 18.88 Ratio (12.00-20.00); Blood Urea Nitrogen 15.1 mg/dL (9.0-27.0); Carbon Dioxide 17.4 mmol/L (21.6-31.8); Chloride 109 mmol/L (96-109); Chol/HDL Ratio 3.86 Ratio; Globulin 3.1 d/dL (1.6-3.3); Glucose 174 mg/dL (70-110); LDL Cholesterol,Calculated 107.8 mg/dL (0.0-131.0); Potassium 4.7 mmol/L (3.5-5.5); Sodium 142 mmol/L (135-145); Total Bilirubin 0.3 mg/dL (0.3-1.2); Total Protein 7.4 d/dL (6.2-8.2); VLDL Calculation 17.36 mg/dL (5.00-40.00)
== END | disposition home or self-care (01) ==
LOC: LABWHC1 08:42
PROVIDERS: ATTEND Physician Assistant Medical
DX: Z51.81 Encounter for therapeutic drug level monitoring (principal); I10 Essential (primary) hypertension; Z79.899 Other long term (current) drug therapy; R53.83 Other fatigue
CPT/HCPCS: 36415; 80053; 80061; 83036; 84443; 85027